=== PATIENT | female | born 1970 | race Caucasian/White ===

== ENCOUNTER 2018-06-01 08:26 | Day surgery (SDC) | payer BC ==
[2018-05-31 14:24] VITALS: BMI 34.1
[2018-06-01] VITALS (19 sets, daily range): BP systolic 104–154; BP diastolic 60–86; PULSE 80–114; RESP 13–19; Ht 154.9 cm; Wt 85.9 kg
[~2018-06-01] VITALS: Ht 154.9 cm; Wt 85.9 kg
[~2018-06-01 08:26] MED LIST: DESFLURANE 15 MIN ONE
[2018-06-01] MEDS ORDERED: CEFAZOLIN 2 GM/50 ML (PMX) 50 ML IVPB ONE (09:00)
[2018-06-01] MEDS ORDERED: SOD CHLORIDE 0.9% 1,000 ML IV SCH (09:00)
[2018-06-01] MEDS ORDERED: LOSA100T15 PO (09:17)
[2018-06-01] MEDS ORDERED: MIDAZOLAM 1 MG/ML 2 ML INJ ONE (09:55)
[2018-06-01] MEDS ORDERED: LIDOCAINE 2% (SDV) 5 ML INJ ONE (09:55)
[2018-06-01] MEDS ORDERED: PROPOFOL 20 ML ONE (09:55)
[2018-06-01] MEDS ORDERED: ROCURONIUM 50 MG INJ ONE (09:55)
[2018-06-01] MEDS ORDERED: DEXAMETHASONE 4 MG/ML 5 ML INJ ONE ×2 (09:56→11:14)
[2018-06-01] MEDS ORDERED: ROPIVACAINE 0.5 % 30 ML VIAL ONE (09:56)
[2018-06-01] MEDS ORDERED: GLYCOPYRROLATE 0.4 MG INJ ONE ×3 (10:06→11:32)
[2018-06-01] MEDS ORDERED: NEOSTIGMINE 3 MG/3 ML SYRINGE ONE ×2 (10:06→11:32)
[2018-06-01] MEDS ORDERED: SUGAMMADEX SODIUM 200 MG/2 ML VIAL IV ONE (10:07)
--- NOTE | 2018-06-01 10:32 | PREAC ---
Date/Time of Note Date/Time of Note DATE: 06/01/18 TIME: 10:31 Anesthesia Eval and Record Evaluation Time Pre-Procedure Interview DATE: 06/01/18 TIME: 10:31 Age 47 Sex female NPO: 8 hrs Preoperative diagnosis incisional hernia Planned procedure laproscopic hernia repair Past Medical History Past Medical History: Includes Cardio: HTN GI: Obesity Surgery & Anesthesia Issues No known issue Meds Anticoagulation: No Beta Adonay within 24 hr: No Reason Beta Adonay not given: Pt. not on B-Adonay Reported Medications Losartan Potassium* (Losartan Potassium*) 100 Mg Tablet, 100 MG PO DAILY, TAB 06/01/18 Current Medications Sodium Chloride 1,000 ml @ 75 mls/hr [id number] IV Last administered on 06/01/18at 09:53; Admin Dose 75 MLS/HR; Start 06/01/18 at 09:00; Stop 06/01/18 at 22:19 Meds reviewed: Yes Allergies Coded Allergies: No Known Drug Allergies (Unverified Allergy, Unknown, 06/01/18) Allergies Reviewed: Yes Labs/Studies Labs Reviewed: Reviewed by anesthesiologist test: Negative Pre-procedure Exam Last vitals Vital Signs Date Temp Pulse Resp B/P (MAP) Pulse Ox O2 O2 Flow FiO2 Time Delivery Rate 06/01/18 97.7 86 16 154/86 97 Room Air 09:46 (108) Airway: Adequate mouth opening, Adequate thyromental dist Mallampati: Mallampati IV Teeth: Normal Lung: Normal Heart: Normal ASA Physical Status ASA physical status: 2 Emergency: None Pre-operative Attestations Prior to commencing anesthesia and surgery, the patient was re-evaluated, there was verification of: *The patient's identity *The results of appropriate recent lab work and preoperative vital signs *The above evaluation not changing prior to induction *Anesthetic plan, risk benefits, alternative and complications discussed with patient/family; questions answered; patient/family understands, accepts and wishes to proceed. SHILO ADAMS DO Jun 01, 2018 10:32
[2018-06-01] MEDS ORDERED: BUPIVACAINE 0.25% (MPF) 30 ML INJ ONE (10:36)
[2018-06-01] MEDS ORDERED: HYDROmorphONE 1 MG/5 ML IV SYRINGE IV PRN ×2 (11:00)
[2018-06-01] MEDS ORDERED: LABETALOL HCL 20MG INJ IV PRN (11:00)
[2018-06-01] MEDS ORDERED: hydrALAzine 20 MG INJ IV PRN (11:00)
[2018-06-01] MEDS ORDERED: MEPERIDINE 25 MG INJ IV PRN (11:00)
[2018-06-01] MEDS ORDERED: ONDANSETRON 4 MG INJ IV PRN (11:00)
[2018-06-01] MEDS ORDERED: CEFAZOLIN 1 GM INJ ONE (11:14)
[2018-06-01] MEDS ORDERED: ONDANSETRON 4 MG INJ ONE (11:14)
--- NOTE | 2018-06-01 11:47 | OPR ---
Date/Time of Note Date/Time of Note DATE: 06/01/18 TIME: 11:44 Operative Report Procedure Date: Jun 01, 2018 Preoperative Diagnosis incarcerated incisional hernia Postoperative Diagnosis same Operation/Procedure Performed 1. laparoscopic incarcerated incisional hernia repair cpt code 55051 2. implantation of abdominal mesh polypropylene 15 x 15 cm cpt code 15662 3. laparoscopic lysis of adhesions Surgeon see signature line Compliance Advisor none Anesthesia Type: general Estimated Blood Loss: 0 - 10 ml's Transfusion none Specimen none Grafts/Implants none Complications none Pt Condition Post Procedure: stable Indications This is a 47-year-old female with symptomatic incarcerated incisional hernia. She has pain and requests surgical repair. Risks alternatives benefits and personnel were discussed the patient. Patient expressed understanding consents to the operation. Procedure Description Patient is taken to the OR and prepped and draped in usual sterile fashion. Surgical time was performed. IV antibiotics were given. Left upper quadrant 5 mm transverse incision was made with a 15 blade. Using a 5 mm optical trocar optical entry is performed. Pneumoperitoneum is established. Left flank 12 mm optical trochars placed under direct visualization. Left lower quadrant 5 mm optical trocar was placed under direct visualization. Upon initial inspection there is incarcerated hernia contents with adhesions. Laparoscopic lysis of adhesions performed to allow visualization and mobilization of the contents away from the site of the hernia. After identification of the fascial edges laparoscopic lysis of adhesions was further performed to allow reduction and mobilization of all contents out of the hernia. The hernia defect was identified. The hernia defect was then closed primarily using Endo Close and laparoscopic techniques with #1 Vicryl suture. After primary closure of the defect underlay mesh with 15 x 15 cm polypropylene mesh was secured with secure strap. Good hemostasis was established. All ports were removed under direct position. Skin was closed with skin wnedy. A tap block was provided at the beginning of the operation by the anesthesiologist. Dry dressings were applied. Roseanne ZAMBRANO Jun 01, 2018 11:47
--- NOTE | 2018-06-01 11:55 | PAC ---
Date/Time of Note Date/Time of Note DATE: 06/01/18 TIME: 11:55 Post-Anesthesia Notes Post-Anesthesia Note Last documented vital signs Vital Signs Date Temp Pulse Resp B/P (MAP) Pulse Ox O2 O2 Flow FiO2 Time Delivery Rate 06/01/18 98.7 87 19 130/65 100 11:52 06/01/18 86 16 154/86 97 Room Air 09:46 (108) Activity: WNL Respiratory function: WNL Cardiovascular function: WNL Mental status: Baseline Pain reasonably controlled: Yes Hydration appropriate: Yes Nausea/Vomiting absent: Yes SHILO ADAMS DO Jun 01, 2018 11:55
[2018-06-01] MEDS ORDERED: HYDROCODONE/APAP (5/325) TAB PO ONE (12:00)
== END 2018-06-01 14:00 | disposition home or self-care (01) ==
LOC: SDS 08:26
PROVIDERS: ATTEND Surgery
DX: K43.0 Incisional hernia with obstruction, without gangrene (principal); I10 Essential (primary) hypertension; E66.9 Obesity, unspecified; Z68.35 Body mass index [BMI] 35.0-35.9, adult
CPT/HCPCS: 49655; J0690; J1100; J2250; J2405; J2710; J2795; J3010; Z7610; 84703

== ENCOUNTER 2018-06-04 12:57 | Emergency (ER) | payer BC ==
[~2018-06-04] VITALS: Ht 162.6 cm; Wt 86.0 kg
[~2018-06-04 12:57] MED LIST changes: -DESFLURANE 15 MIN ONE; +LOSA100T15 PO
[2018-06-04 13:48] VITALS: Ht 162.6 cm; Wt 86.0 kg
[2018-06-04] MEDS ORDERED: SODIUM CHLORIDE 0.9% 1L BAG IV* STA (14:05)
--- NOTE | 2018-06-04 14:21 | ERD ---
ER Documentation Chief Complaint Chief Complaint CONSTIPATION X 5 DAYS, ABD PAIN, S/P HERNIA SURGERY FRI HERE HPI The patient is a 47-year-old male, presenting to the ER because of constipation for the last 5 days after umbilical incarcerated hernia surgery. She went to [facility] yesterday, had a Rhodes catheter inserted due to acute urinary retention. She came back to the ER today because of recurrent pain, complains of constipation, denies fever, chills, neck pain, chest pain, vomiting, complains of diffuse abdominal discomfort, denies dysuria. She does not smoke nor drink Past medical history: Hypertension, dyslipidemia Past surgical history: Ventral herniorrhaphy ROS All systems reviewed and are negative except as per history of present illness. Medications Home Meds Active Scripts Polyethylene Glycol* (Miralax*) 17 Gm Powd.pack, 17 GM PO TID for constipation, #10 Prov:LAKIA HI MD 06/04/18 Na Phos,M-B/Na Phos,Di-Ba (Fleet Enema Extra) 230 Ml Enema, 230 ML RC ONCE, #1 ENEMA Prov:LAKIA HI MD 06/04/18 Bisacodyl* (Dulcolax*) 5 Mg Tablet.dr, 10 MG PO DAILY PRN for CONSTIPATION, #3 TAB Prov:LAKIA HI MD 06/04/18 Tramadol HCl (Tramadol HCl) 50 Mg Tablet, 50 MG PO Q6H PRN for PAIN, #15 TAB Prov:LAKIA HI MD 06/04/18 Reported Medications Losartan Potassium* (Losartan Potassium*) 100 Mg Tablet, 100 MG PO DAILY, TAB 06/01/18 Allergies Allergies: Coded Allergies: No Known Drug Allergies (Unverified Allergy, Unknown, 06/01/18) PMhx/Soc History of Surgery: Yes (tubal ligation) Anesthesia Reaction: No Hx Neurological Disorder: No Hx Respiratory Disorders: No Hx Cardiac Disorders: Yes (htn) Hx Psychiatric Problems: No Hx Miscellaneous Medical Probl: No Hx Alcohol Use: No Hx Substance Use: No Hx Tobacco Use: No Physical Exam Vitals Vital Signs Date Temp Pulse Resp B/P (MAP) Pulse Ox O2 O2 Flow FiO2 Time Delivery Rate 06/04/18 96.3 70 17 135/79 100 Room Air 17:16 (97) 06/04/18 100.1 91 20 144/78 98 Room Air 14:00 (100) 06/04/18 99.6 105 20 134/73 98 13:48 (93) Physical Exam Const: No acute distress. Head: Atraumatic. Eyes: Normal Conjunctiva. ENT: Normal External Ears, Nose and Mouth. Neck: Full range of motion. No meningismus. Resp: Clear to auscultation bilaterally. Cardio: Regular rate and rhythm. Abd: Soft, non distended, normal bowel sounds, vague and diffuse abdominal tenderness, no rigidity, rebound or CVA tenderness, puncture wounds are healing well, no erythema Skin: No petechiae or rashes. Back: No midline or flank tenderness. Ext: No cyanosis, or edema. Neur: Awake and alert. No focal deficit Psych: Normal Mood and Affect. Result Diagram: 06/04/18 1410 06/04/18 1410 Results 24 hrs Laboratory Tests Test 06/04/18 14:10 06/04/18 14:13 06/04/18 14:14 06/04/18 14:23 White Blood Count 9.2 10^3/ul Red Blood Count 4.86 10^6/ul Hemoglobin 13.5 g/dl Hematocrit 40.4 % Mean Corpuscular 83.1 fl Volume Mean Corpuscular 27.8 pg Hemoglobin Mean Corpuscular 33.4 g/dl Hemoglobin Concen t Red Cell 18.6 % Distribution Width Platelet Count 327 10^3/UL Mean Platelet 9.4 fl Volume Immature 0.400 % Granulocytes % Neutrophils % 60.0 % Lymphocytes % 22.4 % Monocytes % 10.1 % Eosinophils % 6.6 % Basophils % 0.5 % Nucleated Red 0.0 /100WBC Blood Cells % Immature 0.040 10^3/ul Granulocytes # Neutrophils # 5.5 10^3/ul Lymphocytes # 2.1 10^3/ul Monocytes # 0.9 10^3/ul Eosinophils # 0.6 10^3/ul Basophils # 0.1 10^3/ul Nucleated Red 0.0 10^3/ul Blood Cells # Prothrombin Time 12.1 Sec Prothrombin Time 0.9 Ratio INR International 0.89 Normalized Ratio Activated 27.2 Sec Partial Thrombopl ast Time Sodium Level 138 mmol/L Potassium Level 4.1 mmol/L Chloride Level 103 mmol/L Carbon Dioxide 23 mmol/L Level Anion Gap 12 Blood Urea 12 mg/dl Nitrogen Creatinine 0.53 mg/dl Est Glomerular > 60 mL/min Filtrat Rate mL/min Glucose Level 84 mg/dl Calcium Level 9.6 mg/dl Total Bilirubin 0.1 mg/dl Direct Bilirubin 0.00 mg/dl Indirect 0.1 mg/dl Bilirubin Aspartate Amino 35 IU/L Transf (AST/SGOT) Alanine 58 IU/L Aminotransferase (ALT/SGPT) Alkaline 85 IU/L Phosphatase Troponin I < 0.012 ng/ml Total Protein 7.5 g/dl Albumin 4.2 g/dl Globulin 3.30 g/dl Albumin/Globulin 1.27 Ratio Lipase 101 U/L Urine Color YELLOW Urine Clarity CLEAR Urine pH 5.0 Urine Specific 1.021 [place] Urine Ketones NEGATIVE mg/dL Urine Nitrite NEGATIVE mg/dL Urine Bilirubin NEGATIVE mg/dL Urine NEGATIVE mg/dL Urobilinogen Urine Leukocyte NEGATIVE Cecil/ul Esterase Urine Hemoglobin NEGATIVE mg/dL Urine Glucose NEGATIVE mg/dL Urine Total NEGATIVE mg/dl Protein POC Venous 1.1 mmol/L Lactate POC Beta HCG, NEGATIVE Qualitative Current Medications Medications Dose Sig/Luis Alberto Start Time Status Last (Trade) Ordered Route PRN Stop Time Admin Dose Reason Admin Sodium 2,580 ml BOLUS OVER 2 06/04/18 Cancel Chloride HOURS STAT 14:05 (NS) IV* 06/04/18 14:06 Morphine 4 mg ONCE STAT 06/04/18 DC 06/04/18 Sulfate IV 14:34 15:03 (morphine) 06/04/18 14:39 Ondansetron 4 mg ONCE STAT 06/04/18 DC 06/04/18 HCl (Zofran IV 14:34 15:02 Inj) 06/04/18 14:39 Sodium 133 ml ONCE ONCE 06/04/18 DC 06/04/18 Biphosphate/ MS 15:00 15:05 Sodium 06/04/18 15:01 Phosphate (Fleet Enema) Procedures/[place] [id number] Radiology Main Line: [phone] DIAGNOSTIC IMAGING REPORT Patient: JACQUIE KILPATRICK : 1970 Age: 47 Sex: F MR #: [id number] DOS: 06/04/18 1405 Ordering MD: MEL PEÑALOZA MD Location: E/R Room/Bed: PROCEDURE: CT Abdomen and Pelvis without contrast. CLINICAL INDICATION: Abdominal pain. TECHNIQUE: CT scan of the abdomen and pelvis without contrast was performed on a multidetector high-resolution CT scanner. The patient was scanned without intravenous contrast. Coronal and sagittal reformatted images were obtained from the axial source images. Images were reviewed on a high-resolution PACS workstation. One or more of the following dose reduction techniques were used: Automated exposure control, adjustment of the mA and/or kV according to patient size, use of iterative reconstruction technique. DICOM images are available. The total exam CTDI equals 21.07 mGy and the total exam DLP equals 1157.68 mGy- cm. COMPARISON: None. FINDINGS: CT abdomen: The lung bases are clear. The heart size is normal, without pericardial thickening or effusion. The liver is normal in size and density without focal mass or intrahepatic biliary dilatation. The spleen is normal in size and homogeneous in density. The stomach is grossly unremarkable. The pancreas as visualized is normal. The gallbladder and biliary tree are unremarkable and there is no evidence for biliary dilatation. The adrenal glands are symmetric and normal. The kidneys are symmetrically unremarkable as well. No renal calculus or obstructive uropathy or mass lesion is seen. The aorta is of normal caliber. There is mild aortic atherosclerosis. There is no retroperitoneal lymphadenopathy. The césar hepatis region is clear. The small bowel and mesentery, as visualized, are unremarkable. There is a large amount of retained fecal material throughout the colon. There is a small 3.7 x 4.1 x 2.8 cm midline anterior ventral hernia containing fat and fluid, located proximally 3 cm inferior to the umbilicus. The fascial defect measures 9 mm. There is a left upper quadrant incision without evidence of complication. Small mass encases edema is seen at the left lateral aspect of the umbilicus. CT pelvis: The small bowel loops situated within the pelvis are unremarkable. The pelvic organs are normal. The pelvic sidewalls and inguinal regions are clear. The sigmoid colon and rectum are unremarkable. The appendix is normal. No mass, lymphadenopathy, or free fluid is seen. No acute inflammation is seen. Rhodes catheters present. The surrounding osseous structures are unremarkable. No osteolytic or osteoblastic lesion is detected. IMPRESSION: 1. Small 3.7 x 4.1 x 2.8 cm midline anterior ventral hernia containing fat and fluid, located proximally 3 cm inferior to the umbilicus. 2. Large amount of retained fecal material throughout the colon suggesting constipation. 3. Postsurgical changes as above. RPTAT: JJ .Renato Hernandez MD, MD Date Time Electronically viewed and signed by .Renato Hernandez MD, MD on 06/04/2018 15:19 .A/ CC: MEL PEÑALOZA MD [id number] [place] [address] Radiology Main Line: [phone] DIAGNOSTIC IMAGING REPORT Patient: JACQUIE KILPATRICK : 1970 Age: 47 Sex: F MR #: [id number] DOS: 06/04/18 1405 Ordering MD: MEL PEÑALOZA MD Location: E/R Room/Bed: PROCEDURE: XR Chest. CLINICAL INDICATION: chest pain, sepsis TECHNIQUE: Single frontal view of the chest was obtained COMPARISON: None FINDINGS: The heart and mediastinum are within normal limits. The lungs are clear. There is no pleural effusion or pneumothorax. RPTAT: AA IMPRESSION: No acute disease. .Bryan Ordaz MD, MD Date Time Electronically viewed and signed by .Bryan Ordaz MD, MD on 06/04/2018 15:01 .S/ CC: MEL PEÑALOZA MD [id number] EKG: Read by emergency physician Rate/Rhythm: Normal Sinus Rhythm 77 beats/min QRS, ST, T-waves: No ST elevation, no T inversion Impression: Normal EKG MEDICAL MAKING DECISION: The patient is a 47-year-old female, presenting with acute postoperative pain, constipation, urinary retention. She was treated with morphine for medical IV for pain, Zofran 4 mg IV for nausea, Fleet enema with good response. She is stable for outpatient follow-up The differential diagnoses considered include but are not limited to cholelithiasis, cholecystitis, choledocholithiasis, cholangitis, pancreatitis, hepatitis, gastritis, peptic ulcer disease, gastric ulcer, appendicitis, cystitis, diverticulitis, partial small bowel obstruction. Departure Diagnosis: Primary Impression: Constipation Additional Impressions: Post-op pain Urinary retention Condition: Good Comments She was discharged with Ultram, advised to stop [place], Dulcolax Fleet enema, MiraLAX I discussed the findings with the patient. I advised the patient to follow-up with a general surgeon and the on-call urologist Dr. Shah 1-2 days, sooner if needed and return if any concern. Disclaimer: Inadvertent spelling and grammatical errors are likely due to EHR/dictation software use and do not reflect on the overall quality of patient care. Also, please note that the electronic time recorded on this note does not necessarily reflect the actual time of the patient encounter. LAKIA HI MD Jun 04, 2018 14:21
[2018-06-04] MEDS ORDERED: morphine 4 MG/ML VIAL IV STA (14:34)
[2018-06-04] MEDS ORDERED: ONDANSETRON 4 MG INJ IV STA (14:34)
[2018-06-04] MEDS ORDERED: NA PHOSPHATE/BIPHOS 133 ML ENEMA PR ONE (15:00)
[2018-06-04] MEDS ORDERED: TRAM50TA2 PO (16:15)
[2018-06-04] MEDS ORDERED: BISA-57 PO (16:16)
[2018-06-04] MEDS ORDERED: NA P230E RC (16:16)
[2018-06-04] MEDS ORDERED: POLY17PO6 PO (16:17)
[2018-06-04 17:16] VITALS: BP 135/79; PULSE 70; RESP 17
== END 2018-06-04 17:24 | disposition home or self-care (01) ==
LOC: E/R 12:57
DX: K59.00 Constipation, unspecified (principal); R33.9 Retention of urine, unspecified; G89.18 Other acute postprocedural pain; I10 Essential (primary) hypertension; R10.9 Unspecified abdominal pain
CPT/HCPCS: 36415; 71045; 74176; 80053; 81003; 81025; 83690; 84484; 85025; 85610; 85730; 86305; 87040; 87086; 93005; 96374; 96375; 99285; J2270; J2405; Z7610; 83605; J7030

== ENCOUNTER 2018-06-07 18:23 | Inpatient (IN) | payer BC ==
[~2018-06-07] VITALS: Ht 154.9 cm; Wt 81.8 kg
[~2018-06-07 18:23] MED LIST changes: +BISA-57 PO; +NA P230E RC; +POLY17PO6 PO; +TRAM50TA2 PO
--- NOTE | 2018-06-07 19:24 | ERD ---
ER Documentation Chief Complaint Chief Complaint C/O GENERALIZED AP, VOMITING AND NO BM X6 DAYS S/P SURGERY HPI 47-year-old woman brought in by family members for continued diffuse abdominal cramping and constipation times 1 week. She is status post surgery for incarcerated umbilical hernia and states she has had pain and constipation since the surgery. She has been using her medications as prescribed including tramadol, oral opioid analgesics, polyethylene glycol, and stool softener. She was seen and evaluated here for the same thing just 3 days ago and a workup was negative and she was given medications for outpatient management. She states she has been using her medications as prescribed but has had very little bowel movements and has continued abdominal cramping. She denies fevers or chills, no chest pain or shortness of breath, no blood per rectum or melena, no headache or blurry vision, no dysuria. ROS All systems reviewed and are negative except as per history of present illness. Medications Home Meds Active Scripts Polyethylene Glycol* (Miralax*) 17 Gm Powd.pack, 17 GM PO TID for constipation, #10 Prov:LAKIA HI MD 06/04/18 Na Phos,M-B/Na Phos,Di-Ba (Fleet Enema Extra) 230 Ml Enema, 230 ML RC ONCE, #1 ENEMA Prov:LAKIA HI MD 06/04/18 Bisacodyl* (Dulcolax*) 5 Mg Tablet.dr, 10 MG PO DAILY PRN for CONSTIPATION, #3 TAB Prov:LAKIA HI MD 06/04/18 Tramadol HCl (Tramadol HCl) 50 Mg Tablet, 50 MG PO Q6H PRN for PAIN, #15 TAB Prov:LAKIA HI MD 06/04/18 Reported Medications Hydrocodone/Acetaminophen (Nichols 10-325 Tablet) 1 Each Tablet, 1 EACH PO Q4 PRN for SEVERE PAIN LEVEL 7-10, TAB 06/07/18 Losartan Potassium* (Losartan Potassium*) 100 Mg Tablet, 100 MG PO DAILY, TAB 06/01/18 Allergies Allergies: Coded Allergies: No Known Drug Allergies (Unverified Allergy, Unknown, 06/07/18) PMhx/Soc Obesity, hernia surgery Anesthesia Reaction: No Hx Neurological Disorder: No Hx Respiratory Disorders: No Hx Cardiac Disorders: Yes (htn) Hx Psychiatric Problems: No Hx Miscellaneous Medical Probl: No Hx Alcohol Use: No Hx Substance Use: No Hx Tobacco Use: No Smoking Status: Never smoker FmHx Family History: No diabetes Physical Exam Vitals Vital Signs Date Temp Pulse Resp B/P (MAP) Pulse Ox O2 O2 Flow FiO2 Time Delivery Rate 06/07/18 97 16 135/85 98 Room Air 19:23 (102) 06/07/18 98.5 133 22 198/93 99 18:41 (128) Physical Exam GENERAL: Well-developed, well-nourished, moderate discomfort, afebrile HEENT: Moist mucous membranes, pink conjunctiva, no cervical spine tenderness or step-off deformities, no goiter, no jaundice or icterus, extraocular movements intact without pain. No submandibular induration, and no pharyngeal erythema NEURO: Alert and oriented 3, cranial nerves II through XII intact bilaterally, pupils equal round reactive to light, no focal deficits or facial asymmetry, sensation intact distally Strength 5/5 in upper and lower extremities bilaterally CARDIAC: Regular rate and rhythm, no murmurs rubs or gallops LUNGS: Clear bilaterally no wheezing crackles or stridor ABDOMEN: Soft, protuberant abdomen, no masses palpated, diffusely tender to superficial touch, no guarding or rigidity, no rebound. SKIN: Warm and dry to touch, no abrasions, contusions, or hematomas, no lacerations, no ecchymosis, no target lesions, and without ulcers EXTREMITIES: No clubbing cyanosis or edema, calves are bilaterally symmetrical, no Homans sign, no popliteal cord sign. Distal pulses equal and bilateral PSYCH: Normal affect without agitation or irritability Result Diagram: 06/07/18193706/07/181937 Results 24 hrs Laboratory Tests Test 06/07/18 19:38 White Blood Count 12.1 10^3/ul Red Blood Count 5.41 10^6/ul Hemoglobin 15.0 g/dl Hematocrit 44.6 % Mean Corpuscular Volume 82.4 fl Mean Corpuscular Hemoglobin 27.7 pg Mean Corpuscular Hemoglobin Concent 33.6 g/dl Red Cell Distribution Width 17.8 % Platelet Count 489 10^3/UL Mean Platelet Volume 9.7 fl Immature Granulocytes % 0.500 % Neutrophils % 82.0 % Lymphocytes % 12.3 % Monocytes % 4.1 % Eosinophils % 0.9 % Basophils % 0.2 % Nucleated Red Blood Cells % 0.0 /100WBC Immature Granulocytes # 0.060 10^3/ul Neutrophils # 9.9 10^3/ul Lymphocytes # 1.5 10^3/ul Monocytes # 0.5 10^3/ul Eosinophils # 0.1 10^3/ul Basophils # 0.0 10^3/ul Nucleated Red Blood Cells # 0.0 10^3/ul Prothrombin Time 11.8 Sec Prothrombin Time Ratio 0.9 INR International Normalized Ratio 0.86 Activated Partial Thromboplast Time 27.5 Sec Sodium Level 140 mmol/L Potassium Level 4.0 mmol/L Chloride Level 101 mmol/L Carbon Dioxide Level 23 mmol/L Anion Gap 16 Blood Urea Nitrogen 14 mg/dl Creatinine 0.76 mg/dl Est Glomerular Filtrat Rate mL/min > 60 mL/min Glucose Level 129 mg/dl Calcium Level 10.1 mg/dl Total Bilirubin 0.2 mg/dl Direct Bilirubin 0.00 mg/dl Indirect Bilirubin 0.2 mg/dl Aspartate Amino Transf (AST/SGOT) 26 IU/L Alanine Aminotransferase (ALT/SGPT) 27 IU/L Alkaline Phosphatase 105 IU/L Total Protein 8.4 g/dl Albumin 4.5 g/dl Globulin 3.90 g/dl Albumin/Globulin Ratio 1.15 Lipase 64 U/L Current Medications Medications Dose Sig/Luis Alberto Start Time Status Last (Trade) Ordered Route PRN Stop Time Admin Dose Reason Admin Sodium 1,000 ml @ Q1H STAT 06/07/18 DC 06/07/18 Chloride 1,000 mls/hr IV 19:34 19:46 06/07/18 20:33 Ketorolac 15 mg ONCE STAT 06/07/18 DC 06/07/18 Tromethamine IV 19:34 19:46 (Toradol) 06/07/18 19:35 Procedures/MDM CT scan of the abdomen pelvis performed 3 days ago, IMPRESSION: 1. Small 3.7 x 4.1 x 2.8 cm midline anterior ventral hernia containing fat and fluid, located proximally 3 cm inferior to the umbilicus. 2. Large amount of retained fecal material throughout the colon suggesting constipation. 3. Postsurgical changes as above. IV line was established patient was placed on dumper operator rhythm strip revealed a sinus rhythm at about 90 bpm with upright P and T waves. Patient was afebrile I administered 1 L normal saline IV, bisacodyl, and Toradol 15 mg IV x1. CBC and electrolytes were normal, liver function tests were normal I spoke to her surgeon Dr. Vincent who recommended repeat imaging and agreed to consult the patient. CT scan of the abdomen and pelvis was performed, IMPRESSION: No evidence of urolithiasis, obstructive uropathy, diverticulitis or appendicitis. Infraumbilical hernia containing fat and a small volume of fluid. Patient will be admitted for continued medical management and surgical consultation. Departure Diagnosis: Primary Impression: Constipation Constipation type: slow transit constipation Qualified Codes: K59.01 - Slow transit constipation Additional Impressions: Post-op pain Intractable pain Condition: MALU Gomez MD Jun 07, 2018 19:24
[2018-06-07] MEDS ORDERED: SOD CHLORIDE 0.9% 1,000 ML IV STA (19:34)
[2018-06-07] MEDS ORDERED: KETOROLAC 15 MG INJ IV STA (19:34)
[2018-06-07] MEDS ORDERED: HYDR-3980 PO (20:31)
[2018-06-07] MEDS ORDERED: DICYCLOMINE 10 MG CAP PO ONE (21:00)
[2018-06-07 22:00] VITALS: BP 139/67; PULSE 90; RESP 18
[2018-06-07] MEDS ORDERED: BISACODYL 10 MG SUPP PR ONE (23:00)
[2018-06-07] MEDS ORDERED: NACL 0.9% 3 ML SYG IV SCH (23:00)
[2018-06-07] MEDS: morphine 2 MG INJ IV PRN (23:11)
[2018-06-07] MEDS: DEXTROSE 5%-0.45% NACL 1,000 ML IV SCH (23:11)
[2018-06-07] MEDS: ONDANSETRON 4 MG INJ IV PRN (23:11)
--- NOTE | 2018-06-07 23:19 | HP ---
Date/Time of Note Date/Time of Note DATE: 06/07/18 TIME: 23:19 Assessment/Plan VTE Prophylaxis Pharmacological prophylaxis: heparin Lines/Catheters IV Catheter Type (from Nrsg): Saline Lock Assessment/Plan Assessment/Plan 47-year-old female with a history of hypertension and incarcerated incisional hernia repair last week here with postop abdominal pain and constipation 1. Postop abdominal pain and constipation -Symptoms probably from post-op ileus. CT abdomen/pelvis without acute findings -Keep n.p.o. for now with IV fluid -Pain management -Awaiting surgical eval by Dr. Vincent 2. Hypertension: BP within goal 3. Recent incarcerated incisional hernia repair (06/01/18) -See #1 Result Diagram: 06/07/18193706/07/181937 Results 24hrs Laboratory Tests Test 06/07/18 19:38 White Blood Count 12.1 #H Red Blood Count 5.41 H Hemoglobin 15.0 Hematocrit 44.6 Mean Corpuscular Volume 82.4 Mean Corpuscular Hemoglobin 27.7 L Mean Corpuscular Hemoglobin Concent 33.6 Red Cell Distribution Width 17.8 H Platelet Count 489 #H Mean Platelet Volume 9.7 Immature Granulocytes % 0.500 H Neutrophils % 82.0 H Lymphocytes % 12.3 L Monocytes % 4.1 Eosinophils % 0.9 Basophils % 0.2 Nucleated Red Blood Cells % 0.0 Immature Granulocytes # 0.060 H Neutrophils # 9.9 H Lymphocytes # 1.5 Monocytes # 0.5 Eosinophils # 0.1 Basophils # 0.0 Nucleated Red Blood Cells # 0.0 Prothrombin Time 11.8 L Prothrombin Time Ratio 0.9 INR International Normalized Ratio 0.86 Activated Partial Thromboplast Time 27.5 Sodium Level 140 Potassium Level 4.0 Chloride Level 101 Carbon Dioxide Level 23 Anion Gap 16 H Blood Urea Nitrogen 14 Creatinine 0.76 Est Glomerular Filtrat Rate mL/min > 60 Glucose Level 129 Calcium Level 10.1 Total Bilirubin 0.2 Direct Bilirubin 0.00 Indirect Bilirubin 0.2 Aspartate Amino Transf (AST/SGOT) 26 Alanine Aminotransferase (ALT/SGPT) 27 Alkaline Phosphatase 105 Total Protein 8.4 H Albumin 4.5 Globulin 3.90 H Albumin/Globulin Ratio 1.15 Lipase 64 HPI/ROS Admit Date/Time Admit Date/Time Jun 07, 2018 at 20:18 Hx of Present Illness This is a 47-year-old female with a history of hypertension and recent laparoscopic incarcerated incisional hernia repair last week. She presented to ER complaining of abdominal pain and constipation. She said she only had very small bowel movement about 3 days ago otherwise she has been constipated. She also reported abdominal distention as well as nausea and nonbloody vomiting.she said she has been eating yogurt and soup for the most part. CT abdomen pelvis in the ER shows no evidence of urolithiasis, obstructive uropathy, diverticulitis or appendicitis. Infraumbilical hernia containing fat and a small volume of fluid. PMH/Family/Social Past Medical History Past Surgical History Past Surgical Hx: other (see hpi) Family History Significant Family History: no pertinent family hx Social History Alcohol Use: other Smoking Status: Unknown if ever smoked Drug Use: other Medications Current Medications Dextrose/Sodium Chloride 1,000 ml @ 120 mls/hr Q8H20M IV Last administered on 06/07/18at 23:11; Admin Dose 120 MLS/HR; Start 06/07/18 at 22:54 IV Flush (NS 3 ml) 3 ml PER PROTOCOL IV ; Start 06/07/18 at 23:00 Ondansetron HCl (Zofran Inj) 4 mg Q6H PRN IV NAUSEA/VOMITING Last administered on 06/07/18at 23:11; Admin Dose 4 MG; Start 06/07/18 at 23:00 Morphine Sulfate (morphine) 2 mg Q4H PRN IV .SEVERE PAIN 7-10 Last administered on 06/07/18at 23:11; Admin Dose 2 MG; Start 06/07/18 at 23:00 Famotidine (Pepcid Iv) 20 mg Q12 IV ; Start 06/08/18 at 09:00 Coded Allergies: No Known Drug Allergies (Unverified Allergy, Unknown, 06/07/18) Social History Smoking Status: Never smoker Exam/Review of Systems Vital Signs Vitals Vital Signs Date Temp Pulse Resp B/P (MAP) Pulse Ox O2 O2 Flow FiO2 Time Delivery Rate 06/07/18 90 20 137/76 98 Room Air 21:24 (96) 06/07/18 98.5 18:41 Exam Constitutional: other (Slight distress noted. She is alert and oriented and answering questions appropriately) Head: normocephalic, atraumatic Eyes: EOMI, PERRL Respiratory: clear to auscultation, normal air movement Cardiovascular: regular rate and rhythm, nl pulses Gastrointestinal: soft, tender Extremities: normal pulses FRANSICO PEREIRA MD Jun 07, 2018 23:19
[2018-06-07 23:36] VITALS: Ht 154.9 cm; Wt 81.8 kg
[2018-06-08 02:20] VITALS: BP 117/56; PULSE 90; RESP 18
[2018-06-08] MEDS: DEXTROSE 5%-0.45% NACL 1,000 ML IV SCH ×3 (06:44→20:52)
[2018-06-08 07:55] VITALS: BP 113/60; PULSE 76; RESP 18
[2018-06-08] MEDS: FAMOTIDINE 20 MG INJ IV SCH ×2 (08:25→20:52)
[2018-06-08] MEDS: morphine 2 MG INJ IV PRN ×3 (08:26→19:41)
[2018-06-08] MEDS ORDERED: MINERAL OIL 133 ML ENEMA PR ONE (11:00)
--- NOTE | 2018-06-08 12:09 | DS ---
Date/Time of Note Date/Time of Note DATE: 06/08/18 TIME: 12:08 Discharge Summary Admission/Discharge Info Admit Date/Time Jun 07, 2018 at 20:18 Discharge Date/Time Patient Condition: Good Consults Dr Vincent Procedures CT abdomen and pelvis without contrast. CLINICAL INDICATION: Pain TECHNIQUE: CT scan of the abdomen and pelvis without contrast was performed and is reconstructed at 2.5 mm contiguous axial intervals from the dome of the diaphragm to the inferior pubic rami.. The patient was scanned without intravenous contrast. Sagittal and coronal reformatted images were obtained from the axial source images. The calculated radiation dose measures 1129 mGy centimeters. The CTDI measures 19 mGy. Individualized dose optimization technique was used for the performance of this exam. This included 1. Automated exposure control. 2. Adjustment of the mA and / or kV according to the patient's size. 3. Use of iterative reconstructed technique. COMPARISON: CT abdomen pelvis June 04 FINDINGS: The lung bases are clear of any infiltrate or nodule. No effusion is seen. The liver is of normal size, contour and attenuation with no mass or ductal dilatation. No gallstones are visualized. No splenic, adrenal or pancreatic abnormalities present. Kidneys are of normal size and contour. No hydronephrosis, calculus or masses seen. Ureters are of normal course and caliber with no stone. No bladder mass or stone is present. Rhodes catheter is present in the lumen of the urinary bladder. There is no aneurysm. Calcified plaque is present in the wall of the aorta. No adenopathy is present. No bowel mass or obstruction is present. The appendix is not visualized.. No phlegmon, ascites or pneumoperitoneum is visualized. There is a midline infra umbilical hernia containing fat and a small volume of fluid. The osseous structures are intact. IMPRESSION: No evidence of urolithiasis, obstructive uropathy, diverticulitis or appendicitis. Infraumbilical hernia containing fat and a small volume of fluid. .Uday Nieves MD, MD Hx of Present Illness 47-year-old female admitted with abdominal pain. No bowel movement for a few days. Recent incisional hernia repair Hospital Course Hospitalist coverage/hospital course Evaluate for abdominal pain. Seen by her surgeon. Wound intact. CAT scan without any acute process. She seems to have obstipation. Counseling options therapy discussed extensively with patient and son. They agree to the care plan and options. Patient to follow-up with her surgeon in 1 week. Home health if available for continuing wound eval. Obstipation Postoperative incisional hernia repair Hypertension Metabolic syndrome Stress incontinence due to obstipation Home Meds Active Scripts Polyethylene Glycol* (Miralax*) 17 Gm Powd.pack, 17 GM PO TID for constipation, #10 Prov:LAKIA HI MD 06/04/18 Na Phos,M-B/Na Phos,Di-Ba (Fleet Enema Extra) 230 Ml Enema, 230 ML RC ONCE, #1 ENEMA Prov:LAKIA HI MD 06/04/18 Bisacodyl* (Dulcolax*) 5 Mg Tablet.dr, 10 MG PO DAILY PRN for CONSTIPATION, #3 TAB Prov:LAKIA HI MD 06/04/18 Tramadol HCl (Tramadol HCl) 50 Mg Tablet, 50 MG PO Q6H PRN for PAIN, #15 TAB Prov:LAKIA HI MD 06/04/18 Reported Medications Hydrocodone/Acetaminophen ([place] 10-325 Tablet) 1 Each Tablet, 1 EACH PO Q4 PRN for SEVERE PAIN LEVEL 7-10, TAB 06/07/18 Losartan Potassium* (Losartan Potassium*) 100 Mg Tablet, 100 MG PO DAILY, TAB 06/01/18 Primary Care Provider [facility] Time spent on discharge: > 30 minutes Pending Labs Laboratory Tests Test 06/07/18 19:38 06/08/18 05:17 White Blood Count 12.1 10^3/ul (4.8-10.8) 6.0 10^3/ul (4.8-10.8) Red Blood Count 5.41 10^6/ul (4.20-5.40) 4.24 10^6/ul (4.20-5.40) Hemoglobin 15.0 g/dl (12.0-16.0) 11.9 g/dl (12.0-16.0) Hematocrit 44.6 % (37.0-47.0) 35.6 % (37.0-47.0) Mean Corpuscular Volume 82.4 fl (82.0-101.0) 84.0 fl (82.0-101.0) Mean Corpuscular 27.7 pg (29.0-33.0) 28.1 pg (29.0-33.0) Hemoglobin Mean Corpuscular 33.6 g/dl (32.0-37.0) 33.4 g/dl (32.0-37.0) Hemoglobin Concent Red Cell Distribution 17.8 % (11.5-14.5) 18.3 % (11.5-14.5) Width Platelet Count 489 10^3/UL (140-415) 346 10^3/UL (140-415) Mean Platelet Volume 9.7 fl (7.4-10.4) 9.6 fl (7.4-10.4) Immature Granulocytes % 0.500 % (0.001-0.429) 0.300 % (0.001-0.429) Neutrophils % 82.0 % (39.0-77.0) 65.9 % (39.0-77.0) Lymphocytes % 12.3 % (15.0-51.0) 17.9 % (15.0-51.0) Monocytes % 4.1 % (0.0-11.0) 10.5 % (0.0-11.0) Eosinophils % 0.9 % (0.0-7.0) 5.2 % (0.0-7.0) Basophils % 0.2 % (0.0-2.0) 0.2 % (0.0-2.0) Nucleated Red Blood Cells 0.0 /100WBC (0.0-0.0) 0.0 /100WBC (0.0-0.0) % Immature Granulocytes # 0.060 10^3/ul (0.0-0.031) 0.020 10^3/ul (0.0-0.031) Neutrophils # 9.9 10^3/ul (1.6-7.5) 3.9 10^3/ul (1.6-7.5) Lymphocytes # 1.5 10^3/ul (0.8-2.9) 1.1 10^3/ul (0.8-2.9) Monocytes # 0.5 10^3/ul (0.3-0.9) 0.6 10^3/ul (0.3-0.9) Eosinophils # 0.1 10^3/ul (0.0-0.5) 0.3 10^3/ul (0.0-0.5) Basophils # 0.0 10^3/ul (0.0-0.1) 0.0 10^3/ul (0.0-0.1) Nucleated Red Blood Cells 0.0 10^3/ul (0.0-0.0) 0.0 10^3/ul (0.0-0.0) # Prothrombin Time 11.8 Sec (11.9-14.9) Prothrombin Time Ratio 0.9 INR International 0.86 Normalized Ratio Activated 27.5 Sec (23.0-35.0) Partial Thromboplast Time Sodium Level 140 mmol/L (135-144) 138 mmol/L (135-144) Potassium Level 4.0 mmol/L (3.5-5.1) 3.5 mmol/L (3.5-5.1) Chloride Level 101 mmol/L (97-110) 103 mmol/L (97-110) Carbon Dioxide Level 23 mmol/L (21-31) 26 mmol/L (21-31) Anion Gap 16 (5-13) 9 (5-13) Blood Urea Nitrogen 14 mg/dl (7-20) 15 mg/dl (7-20) Creatinine 0.76 mg/dl (0.44-1.00) 0.66 mg/dl (0.44-1.00) Est Glomerular Filtrat > 60 mL/min (>60) > 60 mL/min (>60) Rate mL/min Glucose Level 129 mg/dl (70-220) 114 mg/dl (70-220) Calcium Level 10.1 mg/dl (8.4-10.2) 8.3 mg/dl (8.4-10.2) Total Bilirubin 0.2 mg/dl (0.2-1.3) 0.2 mg/dl (0.2-1.3) Direct Bilirubin 0.00 mg/dl (0.00-0.20) 0.00 mg/dl (0.00-0.20) Indirect Bilirubin 0.2 mg/dl (0-1.1) 0.2 mg/dl (0-1.1) Aspartate Amino 26 IU/L (15-46) 22 IU/L (15-46) Transf (AST/SGOT) Alanine 27 IU/L (13-69) 30 IU/L (13-69) Aminotransferase (ALT/SGPT ) Alkaline Phosphatase 105 IU/L (42-121) 68 IU/L (42-121) Total Protein 8.4 g/dl (6.1-8.1) 6.3 g/dl (6.1-8.1) Albumin 4.5 g/dl (3.3-4.9) 3.3 g/dl (3.3-4.9) Globulin 3.90 g/dl (1.3-3.2) 3.00 g/dl (1.3-3.2) Albumin/Globulin Ratio 1.15 1.10 Lipase 64 U/L (23-300) Phosphorus Level 3.4 mg/dl (2.5-4.9) Magnesium Level 2.1 mg/dl (1.7-2.5) AYAH MILLIGAN MD Jun 08, 2018 12:09
--- NOTE | 2018-06-08 12:10 | PDOCDIS ---
Discharge Instructions CONDITION [id number] Patient Condition: [id number] Stable HOME CARE INSTRUCTIONS: [id number] Diet Instructions: [id number] TIVITY: [id number] Activity Restrictions: [id number] Avoid heavy lifting FOLLOW UP/APPOINTMENTS Follow-up Plan Dr Vincent 1wk PCP 1wk AYAH MILLIGAN MD Jun 08, 2018 12:10
[2018-06-08] MEDS ORDERED: SENOKOTS PO (12:11)
--- NOTE | 2018-06-08 13:12 | CONS ---
DATE OF ADMISSION: 06/07/2018 DATE OF CONSULTATION: 06/08/2018 INDICATION: This is a 47-year-old female who recently had a laparoscopic incarcerated incisional her eric repair. Postoperatively, she is having some pain and was on oral narcotics. Subsequently, she d eveloped constipation and has not had a full bowel movement in almost a week. She presented to the E with some distention. CT scan shows small infraumbilical hernia with fat and small fluid volume. Additionally, she has an extensive amount of stool in her colon. General surgery was consulted for a ssistance in management. LABORATORY DATA: White blood cell count 6.0, hemoglobin 11.9, platelets 346. Chemistries are all wi thin normal limits except for calcium of 8.3. PHYSICAL EXAMINATION: VITAL SIGNS: Temperature is 98.4, pulse is 76, respiratory rate is 18, blood pressure 113/60. ABDOMEN: Focal abdominal findings, is distended. No peritoneal signs or rebound tenderness. Well h ealed incisions from the port sites. DIAGNOSTIC DATA: CT scan as mentioned above. ASSESSMENT AND PLAN: This is a 47-year-old female status post laparoscopic incarcerated incisional h ernia with subsequent constipation. We will do some bowel regimen of enema to help her have a bowel movement. We will continue to follow as needed. Dictated By: LORENE ZAMBRANO MD SB/NTS Conf#: [id number] DID#: [id number] CC: FRANSICO PEREIRA MD; AYAH MILLIGAN MD;*EndCC*
[2018-06-08 14:11] VITALS: BP 131/72; PULSE 83; RESP 18
[2018-06-08] MEDS ORDERED: POLYETHYLENE GLYCOL 17 GM PACKET PO ONE (15:00)
[2018-06-08] MEDS ORDERED: SENNA/DOCUSATE NA (8.6MG/50MG) TAB PO ONE (15:00)
[2018-06-08] MEDS ORDERED: LORAZEPAM 2 MG INJ IV ONE (19:30)
[2018-06-08] MEDS: ONDANSETRON 4 MG INJ IV PRN (19:42)
[2018-06-08 20:00] VITALS: BP 167/85; PULSE 88; RESP 20
[2018-06-08] MEDS: POLYETHYLENE GLYCOL 17 GM PACKET PO SCH (21:00)
[2018-06-08] MEDS: SENNA/DOCUSATE NA (8.6MG/50MG) TAB PO SCH (21:00)
[2018-06-08] MEDS ORDERED: morphine 4 MG/ML VIAL IV ONE (21:29)
[2018-06-08] MEDS ORDERED: morphine 4 MG/ML VIAL IV PRN (21:30)
[2018-06-09 02:00] VITALS: BP 138/73; PULSE 104; RESP 16
[2018-06-09] MEDS: KETOROLAC 30 MG INJ IV PRN ×2 (05:11→13:37)
[2018-06-09] MEDS: ONDANSETRON 4 MG INJ IV PRN (05:11)
[2018-06-09] MEDS: DEXTROSE 5%-0.45% NACL 1,000 ML IV SCH ×3 (05:12→14:29)
[2018-06-09 08:04] VITALS: BP 128/62; PULSE 90; RESP 17
[2018-06-09] MEDS: FAMOTIDINE 20 MG INJ IV SCH ×2 (08:42→21:17)
[2018-06-09] MEDS: POLYETHYLENE GLYCOL 17 GM PACKET PO SCH ×3 (08:42→09:01)
--- NOTE | 2018-06-09 13:12 | PN ---
Date/Time of Note Date/Time of Note DATE: 06/09/18 TIME: 13:11 Assessment/Plan VTE Prophylaxis Risk score (from Nsg)>0 risk: 3 SCD applied (from Nsg): Yes Pharmacological prophylaxis: other Lines/Catheters IV Catheter Type (from Nrsg): Peripheral IV Urinary Cath still in place: Yes Reason Cath still needed: urinary retention, other (indicate) Assessment/Plan Assessment/Plan s/p lap incarcerated ventral hernia repair with mesh with some distention and constipation on NGT will await bowel function Result Diagram: 06/09/18 0609 06/09/18 0609 Results 24hrs Laboratory Tests Test 06/09/18 06:09 White Blood Count 5.5 Red Blood Count 4.51 Hemoglobin 12.6 Hematocrit 37.4 Mean Corpuscular Volume 82.9 Mean Corpuscular Hemoglobin 27.9 L Mean Corpuscular Hemoglobin Concent 33.7 Red Cell Distribution Width 17.6 H Platelet Count 386 Mean Platelet Volume 9.3 Immature Granulocytes % 0.400 Neutrophils % 70.2 Lymphocytes % 13.8 L Monocytes % 13.1 H Eosinophils % 2.0 Basophils % 0.5 Nucleated Red Blood Cells % 0.0 Immature Granulocytes # 0.020 Neutrophils # 3.9 Lymphocytes # 0.8 Monocytes # 0.7 Eosinophils # 0.1 Basophils # 0.0 Nucleated Red Blood Cells # 0.0 Sodium Level 137 Potassium Level 3.6 Chloride Level 100 Carbon Dioxide Level 26 Anion Gap 11 Blood Urea Nitrogen 10 Creatinine 0.62 Est Glomerular Filtrat Rate mL/min > 60 Glucose Level 121 Calcium Level 8.6 Phosphorus Level 3.6 Magnesium Level 2.0 Total Bilirubin 0.2 Direct Bilirubin 0.00 Indirect Bilirubin 0.2 Aspartate Amino Transf (AST/SGOT) 20 Alanine Aminotransferase (ALT/SGPT) 20 Alkaline Phosphatase 72 Total Protein 6.8 Albumin 3.7 Globulin 3.10 Albumin/Globulin Ratio 1.19 Serum HCG, Qualitative NEGATIVE Subjective 24 Hr Interval Summary Free Text/Dictation stomach less distended after NGT placement. patient feeling a little better. Exam/Review of Systems Exam Vitals Vital Signs Date Temp Pulse Resp B/P (MAP) Pulse Ox O2 O2 Flow FiO2 Time Delivery Rate 06/09/18 99.0 90 17 128/62 97 08:04 (84) 06/08/18 Room Air 14:11 Intake and Output 306/08/18 06/09/18 1515:00 23:00 07:00 IntakeIntake Total 480 ml 800 ml 1000 ml OutputOutput Total 1950 ml 300 ml BalanceBalance 480 ml -1150 ml 700 ml Exam moderately distended but with normally a protuberant abdomen no peritoneal signs Results Results 24hrs Laboratory Tests Test 06/09/18 06:09 White Blood Count 5.5 Red Blood Count 4.51 Hemoglobin 12.6 Hematocrit 37.4 Mean Corpuscular Volume 82.9 Mean Corpuscular Hemoglobin 27.9 L Mean Corpuscular Hemoglobin Concent 33.7 Red Cell Distribution Width 17.6 H Platelet Count 386 Mean Platelet Volume 9.3 Immature Granulocytes % 0.400 Neutrophils % 70.2 Lymphocytes % 13.8 L Monocytes % 13.1 H Eosinophils % 2.0 Basophils % 0.5 Nucleated Red Blood Cells % 0.0 Immature Granulocytes # 0.020 Neutrophils # 3.9 Lymphocytes # 0.8 Monocytes # 0.7 Eosinophils # 0.1 Basophils # 0.0 Nucleated Red Blood Cells # 0.0 Sodium Level 137 Potassium Level 3.6 Chloride Level 100 Carbon Dioxide Level 26 Anion Gap 11 Blood Urea Nitrogen 10 Creatinine 0.62 Est Glomerular Filtrat Rate mL/min > 60 Glucose Level 121 Calcium Level 8.6 Phosphorus Level 3.6 Magnesium Level 2.0 Total Bilirubin 0.2 Direct Bilirubin 0.00 Indirect Bilirubin 0.2 Aspartate Amino Transf (AST/SGOT) 20 Alanine Aminotransferase (ALT/SGPT) 20 Alkaline Phosphatase 72 Total Protein 6.8 Albumin 3.7 Globulin 3.10 Albumin/Globulin Ratio 1.19 Serum HCG, Qualitative NEGATIVE Medications Medication Current Medications Dextrose/Sodium Chloride 1,000 ml @ 120 mls/hr Q8H20M IV Last administered on 06/09/18at 05:12; Admin Dose 120 MLS/HR; Start 06/07/18 at 22:54 IV Flush (NS 3 ml) 3 ml PER PROTOCOL IV Last administered on 06/07/18at 23:32; Admin Dose 3 ML; Start 06/07/18 at 23:00 Ondansetron HCl (Zofran Inj) 4 mg Q6H PRN IV NAUSEA/VOMITING Last administered on 06/09/18at 05:11; Admin Dose 4 MG; Start 06/07/18 at 23:00 Famotidine (Pepcid Iv) 20 mg Q12 IV Last administered on 06/09/18at 08:42; Admin Dose 20 MG; Start 06/08/18 at 09:00 Polyethylene Glycol (Miralax) 17 gm BID PO Last administered on 06/09/18at 08:50; Admin Dose 17 GM; Start 06/08/18 at 21:00 Senna/Docusate Sodium (Senokot-S) 2 tab HS PO ; Start 06/08/18 at 21:00 Morphine Sulfate (morphine) 3 mg Q4H PRN IV SEVERE PAIN LEVEL 7-10; Start 06/08/18 at 21:30 Ketorolac Tromethamine (Toradol) 30 mg Q6H PRN IV PAIN Last administered on 06/09/18at 05:11; Admin Dose 30 MG; Start 06/08/18 at 23:00; Stop 06/09/18 at 23:00 Roseanne ZAMBRANO Jun 09, 2018 13:12
[2018-06-09] MEDS: PHENOL 1.4% SOLN 180 ML BTL MT PRN (14:44)
[2018-06-09 15:53] VITALS: BP 122/58; PULSE 84; RESP 16
[2018-06-09 16:14] VITALS: BP 122/58; PULSE 84; RESP 16
--- NOTE | 2018-06-09 16:52 | PN ---
Date/Time of Note Date/Time of Note DATE: 06/09/18 TIME: 16:50 Assessment/Plan VTE Prophylaxis Risk score (from Nsg)>0 risk: 3 SCD applied (from Nsg): Yes SCD contraindicated: low risk/ambulating Pharmacological prophylaxis: LMWH Lines/Catheters IV Catheter Type (from Nrsg): Peripheral IV Urinary Cath still in place: Yes Reason Cath still needed: urinary retention Assessment/Plan Hospital Course Hospitalist coverage/hospital course Evaluate for abdominal pain. Seen by her surgeon. Wound intact. CAT scan without any acute process. She seems to have obstipation. Counseling options therapy discussed extensively with patient and son. They agree to the care plan and options. Patient to follow-up with her surgeon in 1 week. Home health if available for continuing wound eval. Assessment and plan 1. Ileus/Obstipation mod stable, increased bowel care regimen. Presently n.p.o. with NG care. Repeat enema? 2. Postoperative incisional hernia repair 2. Hypertension 4.. Metabolic syndrome 5. Stress incontinence due to obstipation Subjective: Feels better improved post NG insertion. Minimal flatus. No dyspnea. NG with greenish dark and pinkish output Objective: Vital signs stable Physical exam No pallor icterus Regular no m/r/g Clear Bs+/dimin, mild diffuse tenderness, mostly below umbilicus. Overweight, no r/r/g. Surgical site CDI No edema Result Diagram: 06/09/18 0609 06/09/18 0609 Results 24hrs Laboratory Tests Test 06/09/18 06:09 White Blood Count 5.5 Red Blood Count 4.51 Hemoglobin 12.6 Hematocrit 37.4 Mean Corpuscular Volume 82.9 Mean Corpuscular Hemoglobin 27.9 L Mean Corpuscular Hemoglobin Concent 33.7 Red Cell Distribution Width 17.6 H Platelet Count 386 Mean Platelet Volume 9.3 Immature Granulocytes % 0.400 Neutrophils % 70.2 Lymphocytes % 13.8 L Monocytes % 13.1 H Eosinophils % 2.0 Basophils % 0.5 Nucleated Red Blood Cells % 0.0 Immature Granulocytes # 0.020 Neutrophils # 3.9 Lymphocytes # 0.8 Monocytes # 0.7 Eosinophils # 0.1 Basophils # 0.0 Nucleated Red Blood Cells # 0.0 Sodium Level 137 Potassium Level 3.6 Chloride Level 100 Carbon Dioxide Level 26 Anion Gap 11 Blood Urea Nitrogen 10 Creatinine 0.62 Est Glomerular Filtrat Rate mL/min > 60 Glucose Level 121 Calcium Level 8.6 Phosphorus Level 3.6 Magnesium Level 2.0 Total Bilirubin 0.2 Direct Bilirubin 0.00 Indirect Bilirubin 0.2 Aspartate Amino Transf (AST/SGOT) 20 Alanine Aminotransferase (ALT/SGPT) 20 Alkaline Phosphatase 72 Total Protein 6.8 Albumin 3.7 Globulin 3.10 Albumin/Globulin Ratio 1.19 Serum HCG, Qualitative NEGATIVE Exam/Review of Systems Exam Vitals Vital Signs Date Temp Pulse Resp B/P (MAP) Pulse Ox O2 O2 Flow FiO2 Time Delivery Rate 06/09/18 98.6 84 16 122/58 96 16:14 (79) 06/08/18 Room Air 14:11 Intake and Output 06/08/18 06/08/18 06/09/18 1414:59 22:59 06:59 IntakeIntake Total 480 ml 800 ml 1000 ml OutputOutput Total 1950 ml 300 ml BalanceBalance 480 ml -1150 ml 700 ml Results Results 24hrs Laboratory Tests Test 06/09/18 06:09 White Blood Count 5.5 Red Blood Count 4.51 Hemoglobin 12.6 Hematocrit 37.4 Mean Corpuscular Volume 82.9 Mean Corpuscular Hemoglobin 27.9 L Mean Corpuscular Hemoglobin Concent 33.7 Red Cell Distribution Width 17.6 H Platelet Count 386 Mean Platelet Volume 9.3 Immature Granulocytes % 0.400 Neutrophils % 70.2 Lymphocytes % 13.8 L Monocytes % 13.1 H Eosinophils % 2.0 Basophils % 0.5 Nucleated Red Blood Cells % 0.0 Immature Granulocytes # 0.020 Neutrophils # 3.9 Lymphocytes # 0.8 Monocytes # 0.7 Eosinophils # 0.1 Basophils # 0.0 Nucleated Red Blood Cells # 0.0 Sodium Level 137 Potassium Level 3.6 Chloride Level 100 Carbon Dioxide Level 26 Anion Gap 11 Blood Urea Nitrogen 10 Creatinine 0.62 Est Glomerular Filtrat Rate mL/min > 60 Glucose Level 121 Calcium Level 8.6 Phosphorus Level 3.6 Magnesium Level 2.0 Total Bilirubin 0.2 Direct Bilirubin 0.00 Indirect Bilirubin 0.2 Aspartate Amino Transf (AST/SGOT) 20 Alanine Aminotransferase (ALT/SGPT) 20 Alkaline Phosphatase 72 Total Protein 6.8 Albumin 3.7 Globulin 3.10 Albumin/Globulin Ratio 1.19 Serum HCG, Qualitative NEGATIVE Medications Medication Current Medications Dextrose/Sodium Chloride 1,000 ml @ 120 mls/hr Q8H20M IV Last administered on 06/09/18 13:40; Admin Dose 120 MLS/HR; Start 06/07/18 at 22:54 IV Flush (NS 3 ml) 3 ml PER PROTOCOL IV Last administered on 06/07/18 23:32; Admin Dose 3 ML; Start 06/07/18 at 23:00 Ondansetron HCl (Zofran Inj) 4 mg Q6H PRN IV NAUSEA/VOMITING Last administered on 06/09/18 05:11; Admin Dose 4 MG; Start 06/07/18 at 23:00 Famotidine (Pepcid Iv) 20 mg Q12 IV Last administered on 06/09/18 08:42; Admin Dose 20 MG; Start 06/08/18 at 09:00 Polyethylene Glycol (Miralax) 17 gm BID PO Last administered on 06/09/18 08:50; Admin Dose 17 GM; Start 06/08/18 at 21:00 Senna/Docusate Sodium (Senokot-S) 2 tab HS PO ; Start 06/08/18 at 21:00 Morphine Sulfate (morphine) 3 mg Q4H PRN IV SEVERE PAIN LEVEL 7-10; Start 06/08/18 at 21:30 Ketorolac Tromethamine (Toradol) 30 mg Q6H PRN IV PAIN Last administered on 13:37; Admin Dose 30 MG; Start 06/08/18 at 23:00; Stop 06/09/18 at 23:00 Phenol (Chloraseptic Throat [place]) 2 spray Q2H PRN MT SORE THROAT Last administered on 06/09/18 14:44; Admin Dose 2 SPRAY; Start 06/09/18 at 14:00 AYAH MILLIGAN MD Jun 09, 2018 16:52
[2018-06-09] MEDS: METOCLOPRAMIDE 10 MG INJ IV SCH ×2 (17:53→23:57)
[2018-06-09 20:30] VITALS: BP 142/71; PULSE 90; RESP 17
[2018-06-09] MEDS: SENNA/DOCUSATE NA (8.6MG/50MG) TAB PO SCH (20:55)
[2018-06-09] MEDS: KETOROLAC 30 MG INJ IV SCH (21:25)
[2018-06-10 02:29] VITALS: BP 146/76; PULSE 89; RESP 20
[2018-06-10] MEDS: DULOXETINE 30 MG CAP DR PO SCH ×2 (02:42→09:00)
[2018-06-10] MEDS: DEXTROSE 5%-0.45% NACL 1,000 ML IV SCH ×2 (03:21→17:34)
[2018-06-10] MEDS: METOCLOPRAMIDE 10 MG INJ IV SCH ×3 (05:48→21:31)
[2018-06-10] MEDS: KETOROLAC 30 MG INJ IV SCH ×3 (05:48→23:38)
[2018-06-10 07:30] VITALS: BP 126/60; PULSE 75; RESP 18
[2018-06-10] MEDS: POLYETHYLENE GLYCOL 17 GM PACKET PO SCH (09:00)
[2018-06-10] MEDS: FAMOTIDINE 20 MG INJ IV SCH ×2 (09:41→21:29)
[2018-06-10] MEDS: ENOXAPARIN 40 MG/0.4 ML SYG SC SCH (09:42)
[2018-06-10] MEDS: PHENOL 1.4% SOLN 180 ML BTL MT PRN ×3 (10:52→23:37)
--- NOTE | 2018-06-10 11:53 | PN ---
Date/Time of Note Date/Time of Note DATE: 06/10/18 TIME: 11:51 Assessment/Plan VTE Prophylaxis Risk score (from Nsg)>0 risk: 3 SCD applied (from Nsg): Yes SCD contraindicated: low risk/ambulating Pharmacological prophylaxis: LMWH Lines/Catheters IV Catheter Type (from Nrsg): Peripheral IV Urinary Cath still in place: Yes Reason Cath still needed: urinary retention Assessment/Plan Hospital Course Hospitalist coverage/hospital course Evaluate for abdominal pain. Seen by her surgeon. Wound intact. CAT scan without any acute process. She seems to have obstipation. Counseling options therapy discussed extensively with patient and son. They agree to the care plan and options. Patient to follow-up with her surgeon in 1 week. Home health if available for continuing wound eval. Assessment and plan 1. Ileus/Obstipation stable, increased bowel care regimen on discharge. Presently npo/ NG. Repeat enema? 2. Postoperative incisional hernia repair able follow-up with surgeon 2. Hypertension 4.. Metabolic syndrome 5. Stress incontinence due to obstipation, continue Rhodes care until status improved 6. Depression? Appreciate behavioral health assistance. Will start Cymbalta when tolerating p.o.'s. Subjective: 3/2 feels better improved post NG insertion. Minimal flatus. No dyspnea. NG w ith greenish dark and pinkish output /3: Feels a bit better. Positive large BM. Less nausea. Still having vague diffuse abdominal discomfort. Wants to consider another enema. Objective: Vital signs stable Physical exam No pallor icterus Regular no m/r/g Clear Bs+/dimin, mild diffuse tenderness. Overweight, no r/r/g. Surgical site CDI No edema Result Diagram: 06/10/18 0557 06/10/18 0557 Results 24hrs Laboratory Tests Test 06/10/18 05:57 White Blood Count 5.8 Red Blood Count 4.44 Hemoglobin 12.2 Hematocrit 36.8 L Mean Corpuscular Volume 82.9 Mean Corpuscular Hemoglobin 27.5 L Mean Corpuscular Hemoglobin Concent 33.2 Red Cell Distribution Width 17.5 H Platelet Count 381 Mean Platelet Volume 9.3 Immature Granulocytes % 0.300 Neutrophils % 58.3 Lymphocytes % 24.0 Monocytes % 12.9 H Eosinophils % 4.0 Basophils % 0.5 Nucleated Red Blood Cells % 0.0 Immature Granulocytes # 0.020 Neutrophils # 3.4 Lymphocytes # 1.4 Monocytes # 0.8 Eosinophils # 0.2 Basophils # 0.0 Nucleated Red Blood Cells # 0.0 Prothrombin Time 13.1 Prothrombin Time Ratio 1.0 INR International Normalized Ratio 0.98 Sodium Level 141 Potassium Level 3.2 L Chloride Level 107 Carbon Dioxide Level 24 Anion Gap 10 Blood Urea Nitrogen 8 Creatinine 0.67 Est Glomerular Filtrat Rate mL/min > 60 Glucose Level 99 Lactic Acid Level 0.7 Calcium Level 8.7 Phosphorus Level 3.7 Magnesium Level 2.4 Total Bilirubin 0.0 L Direct Bilirubin 0.00 Indirect Bilirubin 0.0 Aspartate Amino Transf (AST/SGOT) 27 Alanine Aminotransferase (ALT/SGPT) 16 Alkaline Phosphatase 69 Total Protein 6.5 Albumin 3.5 Globulin 3.00 Albumin/Globulin Ratio 1.16 Exam/Review of Systems Exam Vitals Vital Signs Date Temp Pulse Resp B/P (MAP) Pulse Ox O2 O2 Flow FiO2 Time Delivery Rate 06/10/18 98.6 75 18 126/60 98 07:30 (82) 06/08/18 Room Air 14:11 Intake and Output 06/09/18 06/09/18 06/10/18 1515:00 23:00 07:00 IntakeIntake Total 1000 ml 420 ml 835 ml OutputOutput Total 750 ml 450 ml 850 ml BalanceBalance 250 ml -30 ml -15 ml Results Results 24hrs Laboratory Tests Test 06/10/18 05:57 White Blood Count 5.8 Red Blood Count 4.44 Hemoglobin 12.2 Hematocrit 36.8 L Mean Corpuscular Volume 82.9 Mean Corpuscular Hemoglobin 27.5 L Mean Corpuscular Hemoglobin Concent 33.2 Red Cell Distribution Width 17.5 H Platelet Count 381 Mean Platelet Volume 9.3 Immature Granulocytes % 0.300 Neutrophils % 58.3 Lymphocytes % 24.0 Monocytes % 12.9 H Eosinophils % 4.0 Basophils % 0.5 Nucleated Red Blood Cells % 0.0 Immature Granulocytes # 0.020 Neutrophils # 3.4 Lymphocytes # 1.4 Monocytes # 0.8 Eosinophils # 0.2 Basophils # 0.0 Nucleated Red Blood Cells # 0.0 Prothrombin Time 13.1 Prothrombin Time Ratio 1.0 INR International Normalized Ratio 0.98 Sodium Level 141 Potassium Level 3.2 L Chloride Level 107 Carbon Dioxide Level 24 Anion Gap 10 Blood Urea Nitrogen 8 Creatinine 0.67 Est Glomerular Filtrat Rate mL/min > 60 Glucose Level 99 Lactic Acid Level 0.7 Calcium Level 8.7 Phosphorus Level 3.7 Magnesium Level 2.4 Total Bilirubin 0.0 L Direct Bilirubin 0.00 Indirect Bilirubin 0.0 Aspartate Amino Transf (AST/SGOT) 27 Alanine Aminotransferase (ALT/SGPT) 16 Alkaline Phosphatase 69 Total Protein 6.5 Albumin 3.5 Globulin 3.00 Albumin/Globulin Ratio 1.16 Medications Medication Current Medications Dextrose/Sodium Chloride 1,000 ml @ 80 mls/hr [id number] IV Last administered on 06/10/18 03:21; Admin Dose 80 MLS/HR; Start 06/07/18 at 22:54 IV Flush (NS 3 ml) 3 ml PER PROTOCOL IV Last administered on 06/07/18 23:32; Admin Dose 3 ML; Start 06/07/18 at 23:00 Ondansetron HCl (Zofran Inj) 4 mg Q6H PRN IV NAUSEA/VOMITING Last administered on 06/09/18 05:11; Admin Dose 4 MG; Start 06/07/18 at 23:00 Famotidine (Pepcid Iv) 20 mg Q12 IV Last administered on 06/10/18 09:41; Admin Dose 20 MG; Start 06/08/18 at 09:00 Polyethylene Glycol (Miralax) 17 gm BID PO Last administered on 06/09/18 08:50; Admin Dose 17 GM; Start 06/08/18 at 21:00 Senna/Docusate Sodium (Senokot-S) 2 tab HS PO ; Start 06/08/18 at 21:00 Morphine Sulfate (morphine) 3 mg Q4H PRN IV SEVERE PAIN LEVEL 7-10; Start 06/08/18 at 21:30 Phenol (Chloraseptic Throat [place]) 2 spray Q2H PRN MT SORE THROAT Last administered on 06/10/18 10:52; Admin Dose 2 SPRAY; Start 06/09/18 at 14:00 Ketorolac Tromethamine (Toradol) 30 mg Q8 IV Last administered on 06/10/18 05:48; Admin Dose 30 MG; Start 06/09/18 at 22:00; Stop 06/11/18 at 23:00 Metoclopramide HCl (Reglan) 5 mg Q6 IV Last administered on 06/10/18at 05:48; Admin Dose 5 MG; Start 06/09/18 at 18:00; Stop 06/10/18 at 23:00 Enoxaparin Sodium (Lovenox) 40 mg DAILY SC Last administered on 06/10/18at 09:42; Admin Dose 40 MG; Start 06/10/18 at 09:00 Duloxetine HCl (Cymbalta) 60 mg DAILY PO Last administered on 06/10/18at 02:42; Admin Dose 60 MG; Start 06/10/18 at 02:30 AYAH MILLIGAN MD Jun 10, 2018 11:53
[2018-06-10] MEDS ORDERED: NA PHOSPHATE/BIPHOS 133 ML ENEMA PR ONE (12:30)
[2018-06-10] MEDS: POTASSIUM CHLORIDE 100 ML IVPB SCH ×2 (13:03→15:28)
--- NOTE | 2018-06-10 13:26 | PN ---
DATE: 06/10/2018 ASSESSMENT: The patient is status post ventral hernia repair, laparoscopy with placement of the mesh . PLAN: The patient was admitted due to constipation and severe abdominal pain. CT scan has showed th at the patient has been here for a few days. Actually, was admitted on 06/07/2018 and now is third d ay in the hospital. Yesterday, the patient received some Fleet enema which has helped her to have so me relatively large bowel movement, but still the patient is complaining of abdominal pain, especiall y when she sneezes, she gets severe pain or when she coughs. Denies having passed any gas. OBJECTIVE: GENERAL: Awake, alert, oriented, has been out of bed today and has taken a shower. VITAL SIGNS: Temperature 98.6, heart rate 75, respiration 18, blood pressure 126/60, saturation 98% room air. I and O's, the left NG tube apparently has drained 1350 mL in past 24 hours according to t he recordings. Urine output has been 700 mL. LABORATORY DATA: WBC today 5800, on admission it was 12,000, the differential is 58% segmented. On admission was 82%. Hemoglobin is 12.2, hematocrit 36.8. Chemistry today, potassium is low at 3.2, o therwise the rest of the lab values is normal. The patient appears in pain and uncomfortable. The N G tube appears to be a little bit too far down, so it was pulled back about 20 cm and readjusted and is functioning very nicely. The drainage is only gastric juice is not advised at this time. HEART: Regular. LUNGS: Clear. ABDOMEN: Protruded with fat maybe with some gas. Bowel sound is present. I would say 3+/4+. There is no rigidity. There is no guarding, but some degree of rebound tenderness. Rhodes catheter is in progress. EXTREMITIES: Legs no calf tenderness. No pitting edema. ASSESSMENT AND PLAN: The patient may have still some elements of ileus. The patient thinks that if she has another enema, it is going to help her, so we will give her another Fleets enema. Also, I ch anged the medication, the Reglan is going to be 10 mg q.8h IV, it was 5 mg q.6h., Toradol will polanco e it to 30 mg IV q.6h. p.r.n. or around the clock. We will get a KUB to assess the status of the roddy wels. We will keep the NG tube on intermittent suction. Will order some blood tests for tomorrow. I will see the patient tomorrow. Patient can have ice chips. Otherwise, no fluid. I saw this patien t at the request of Dr. Vincent. Dictated By: JORGE HURLEY MD PS/NTS Conf#: [id number] DID#: [id number] CC: AYAH MILLIGAN MD; FRANSICO PEREIRA MD;*EndCC*
[2018-06-10 15:25] VITALS: BP 141/65; PULSE 94; RESP 18
[2018-06-10 20:05] VITALS: BP 158/80; PULSE 81; RESP 19
[2018-06-11 02:00] VITALS: BP 157/80; PULSE 98; RESP 19
[2018-06-11] MEDS ORDERED: LORAZEPAM 2 MG INJ IV ONE (02:00)
[2018-06-11] MEDS: METOCLOPRAMIDE 10 MG INJ IV SCH ×3 (05:49→21:29)
[2018-06-11] MEDS: KETOROLAC 30 MG INJ IV SCH ×3 (05:49→18:15)
[2018-06-11] MEDS: DEXTROSE 5%-0.45% NACL 1,000 ML IV SCH ×2 (05:49→08:25)
[2018-06-11 07:33] VITALS: BP 133/71; PULSE 84; RESP 18
[2018-06-11] MEDS: FAMOTIDINE 20 MG INJ IV SCH ×2 (08:26→21:29)
[2018-06-11] MEDS: ENOXAPARIN 40 MG/0.4 ML SYG SC SCH (08:27)
[2018-06-11] MEDS ORDERED: DIATR MEGLU/DIATRIZOATE SODIUM 120 ML BTL ONE (12:49)
[2018-06-11] MEDS ORDERED: POTASSIUM CHLORIDE 100 ML IVPB ONE (13:00)
[2018-06-11 15:35] VITALS: BP 162/82; PULSE 94; RESP 20
--- NOTE | 2018-06-11 15:44 | PN ---
DATE: 06/11/2018 SUBJECTIVE: States that feels a little bit better today. She has had a couple of bowel movements, l iquid in nature since yesterday. No nausea, no vomiting. NG tube still is in place, draining slight ly greenish fluid. PHYSICAL EXAMINATION: HEART: Regular. LUNGS: Clear. ABDOMEN: Does not appear distended. It is not tympanic. It is soft. There is no rigidity. There is no guarding. Still, there is some tenderness. When she coughs, she feels tenderness almost all a round the abdomen. Bowel sounds are 3+/4+. VITAL SIGNS: Temperature maximum today 98.2, heart rate 84, respiration 18, blood pressure 133/71, s aturation 92% room air. LABORATORY DATA: WBC 8300 with 68% neutrophils, hemoglobin 11.9, hematocrit 35.3. Chemistry: Potas sium today is 3, yesterday was 3.2, which is low and has to be replaced. Sodium is 140, normal. BUN and creatinine are normal. Total bilirubin is 0.1 which is actually low. DIAGNOSTIC DATA: We got the KUB yesterday afternoon and the report is as follows: Impression: Mode rately dilated small bowel loops in the left mid abdomen. These might be worse when compared to the prior noncontrast CT scans. Further evaluation with contrast-enhanced CT scan of the abdomen and pel vis is advised. ASSESSMENT AND PLAN: This is a 47-year-old female who was admitted through the emergency room 4 days ago because of abdominal pain in the form of cramping and constipation for 1 week. About 2 weeks ag o, she had ventral hernia repair laparoscopically with implantation of mesh. The CT scan here showed severe constipation. The patient actually has been vomiting some on and off; therefore, they have p ut in NG tube, but she had problem having bowel movement or passing gas for several days. She respon ded to Fleet enemas and yesterday afternoon, the x-ray as was mentioned showed that there is very mod erate to severely dilated small bowel loops in the center of the abdomen. They did not mention obstr uction, but it could be partially obstructed in my opinion. They recommended to repeat CT scan of th e abdomen and pelvis with oral contrast, but we are going to get a small bowel follow through to work as a therapeutic possibly and also to show us the contour of the bowel. I have ordered that one and this is going to be done today afternoon. Meanwhile, we will continue to having the NG tube in plac e and give the patient IV fluids. Per nurses' report, the medical doctor hospitalist has ordered pot assium replacement IV per protocol, but apparently, the patient has refused to accept the potassium s olution. In any case, we will wait for the result of the small bowel follow-through with Gastrografi n and further decision will be made after that. We will continue to follow. Dictated By: JORGE HURLEY MD PS/NTS Conf#: [id number] DID#: [id number] CC: AYAH MILLIGAN MD; FRANSICO PEREIRA MD;*End*
--- NOTE | 2018-06-11 17:44 | PN ---
Date/Time of Note Date/Time of Note DATE: 06/11/18 TIME: 17:42 Assessment/Plan VTE Prophylaxis Risk score (from Nsg)>0 risk: 2 SCD applied (from Nsg): Yes Pharmacological prophylaxis: LMWH Lines/Catheters IV Catheter Type (from Nrsg): Peripheral IV Urinary Cath still in place: Yes Reason Cath still needed: other (indicate) Assessment/Plan Hospital Course SUBJECTIVE: Had a bowel movement today. Continues to have abdominal pain and gas. OBJECTIVE: Physical Exam General: Adequately build 47 year-old female lying in bed in no apparent distress. HEENT: Normocephalic, atraumatic. Eyes: Anicteric sclerae, conjunctivae clear. ENT: Nasal septum midline, oral mucosa moist. Neck supple, no JVD noticed. Respiratory: Bilaterally clear breath sounds. No use of accessory muscles of respiration. No adventitious breath sounds. Cardiovascular: S1, S2 heard. No murmurs or gallops. Abdomen: Distended. Genitourinary: Deferred. Extremities: No cyanosis, no clubbing, no edema. Peripheral pulses palpable. Neurologic: Cranial nerves II through XII grossly intact. The patient is awake, alert, and oriented. Skin: Normal skin turgor. No skin rashes. Labs & Vitals per chart ASSESSMENT & PLAN 47-year-old female with past medical history of hypertension, obesity, and recent incarcerated incisional hernia repair on 06/01/2018. The patient came to the emergency room with abdominal pain, vomiting, and no bowel movements for 6 days status post surgery. CT scan of the abdomen and pelvis showed infraumbil ical hernia containing fat and a small volume of fluid. The patient was admitted to inpatient setting for further treatment and evaluation. 1. Postoperative ileus. -NGT decompression as per surgery. -Pending small bowel follow-through. 2. Hypertension. -Continue PRN antihypertensives until the patient is able to take oral medications. 3. Hypokalemia. -Patient refused IV supplements. 4. Fluids, electrolytes, and nutrition. -N.p.o. except ice chips. -Continue IV fluids. 5. DVT prophylaxis. -Subcutaneous Lovenox. 6. Plan. -Continue surgical recommendations. The patient was in collaboration with Dr. Sanders. Result Diagram: 06/11/18 0558 06/11/18 0558 Results 24hrs Laboratory Tests Test 06/11/18 05:58 White Blood Count 8.3 # Red Blood Count 4.29 Hemoglobin 11.9 L Hematocrit 35.3 L Mean Corpuscular Volume 82.3 Mean Corpuscular Hemoglobin 27.7 L Mean Corpuscular Hemoglobin Concent 33.7 Red Cell Distribution Width 17.3 H Platelet Count 404 Mean Platelet Volume 9.5 Immature Granulocytes % 0.400 Neutrophils % 68.4 Lymphocytes % 16.3 Monocytes % 11.6 H Eosinophils % 2.9 Basophils % 0.4 Nucleated Red Blood Cells % 0.0 Immature Granulocytes # 0.030 Neutrophils # 5.7 Lymphocytes # 1.4 Monocytes # 1.0 H Eosinophils # 0.2 Basophils # 0.0 Nucleated Red Blood Cells # 0.0 Sodium Level 140 Potassium Level 3.0 L Chloride Level 102 Carbon Dioxide Level 25 Anion Gap 13 Blood Urea Nitrogen 9 Creatinine 0.73 Est Glomerular Filtrat Rate mL/min > 60 Glucose Level 102 Calcium Level 8.7 Phosphorus Level 4.4 Magnesium Level 2.2 Total Bilirubin 0.1 L Direct Bilirubin 0.00 Indirect Bilirubin 0.1 Aspartate Amino Transf (AST/SGOT) 23 Alanine Aminotransferase (ALT/SGPT) 24 Alkaline Phosphatase 72 Total Protein 6.7 Albumin 3.5 Globulin 3.20 Albumin/Globulin Ratio 1.09 Exam/Review of Systems Exam Vitals Vital Signs Date Temp Pulse Resp B/P (MAP) Pulse Ox O2 O2 Flow FiO2 Time Delivery Rate 06/11/18 98.6 94 20 162/82 94 15:35 (108) 06/11/18 Room Air 07:33 Intake and Output 06/10/18 06/10/18 06/11/18 1515:00 23:00 07:00 IntakeIntake Total 1000 ml 800 ml OutputOutput Total 1400 ml 1500 ml 1850 ml BalanceBalance -1400 ml -500 ml -1050 ml Results Results 24hrs Laboratory Tests Test 06/11/18 05:58 White Blood Count 8.3 # Red Blood Count 4.29 Hemoglobin 11.9 L Hematocrit 35.3 L Mean Corpuscular Volume 82.3 Mean Corpuscular Hemoglobin 27.7 L Mean Corpuscular Hemoglobin Concent 33.7 Red Cell Distribution Width 17.3 H Platelet Count 404 Mean Platelet Volume 9.5 Immature Granulocytes % 0.400 Neutrophils % 68.4 Lymphocytes % 16.3 Monocytes % 11.6 H Eosinophils % 2.9 Basophils % 0.4 Nucleated Red Blood Cells % 0.0 Immature Granulocytes # 0.030 Neutrophils # 5.7 Lymphocytes # 1.4 Monocytes # 1.0 H Eosinophils # 0.2 Basophils # 0.0 Nucleated Red Blood Cells # 0.0 Sodium Level 140 Potassium Level 3.0 L Chloride Level 102 Carbon Dioxide Level 25 Anion Gap 13 Blood Urea Nitrogen 9 Creatinine 0.73 Est Glomerular Filtrat Rate mL/min > 60 Glucose Level 102 Calcium Level 8.7 Phosphorus Level 4.4 Magnesium Level 2.2 Total Bilirubin 0.1 L Direct Bilirubin 0.00 Indirect Bilirubin 0.1 Aspartate Amino Transf (AST/SGOT) 23 Alanine Aminotransferase (ALT/SGPT) 24 Alkaline Phosphatase 72 Total Protein 6.7 Albumin 3.5 Globulin 3.20 Albumin/Globulin Ratio 1.09 Medications Medication Current Medications Dextrose/Sodium Chloride 1,000 ml @ 80 mls/hr [id number] IV Last administered on 06/11/18 08:25; Admin Dose 80 MLS/HR; Start 06/07/18 at 22:54 IV Flush (NS 3 ml) 3 ml PER PROTOCOL IV Last administered on 06/07/18 23:32; Admin Dose 3 ML; Start 06/07/18 at 23:00 Ondansetron HCl (Zofran Inj) 4 mg Q6H PRN IV NAUSEA/VOMITING Last administered on 06/09/18 05:11; Admin Dose 4 MG; Start 06/07/18 at 23:00 Famotidine (Pepcid Iv) 20 mg Q12 IV Last administered on 06/11/18 08:26; Admin Dose 20 MG; Start 06/08/18 at 09:00 Morphine Sulfate (morphine) 3 mg Q4H PRN IV SEVERE PAIN LEVEL 7-10; Start 06/08/18 at 21:30 Phenol (Chloraseptic Throat [place]) 2 spray Q2H PRN MT SORE THROAT Last administered on 06/10/18 23:37; Admin Dose 2 SPRAY; Start 06/09/18 at 14:00 Enoxaparin Sodium (Lovenox) 40 mg DAILY SC Last administered on 06/11/18 08:27; Admin Dose 40 MG; Start 06/10/18 at 09:00 Duloxetine HCl (Cymbalta) 60 mg DAILY PO ; Start 06/12/18 at 12:00 Polyethylene Glycol (Miralax) 17 gm BID PO ; Start 06/15/18 at 21:00 Senna/Docusate Sodium (Senokot-S) 2 tab HS PO ; Start 06/15/18 at 21:00 Ketorolac Tromethamine (Toradol) 30 mg Q6 IV Last administered on 06/11/18at 12:09; Admin Dose 30 MG; Start 06/10/18 at 18:00; Stop 06/13/18 at 17:59 Metoclopramide HCl (Reglan) 10 mg Q8 IV Last administered on 06/11/18at 05:49; Admin Dose 10 MG; Start 06/10/18 at 14:00 JAIRO HURT NP Jun 11, 2018 17:44
[2018-06-11] MEDS ORDERED: ACETAMINOPHEN 1000MG/100ML IV 100 ML IVPB ONE (18:30)
[2018-06-11 20:22] VITALS: BP 142/73; PULSE 102; RESP 18
[2018-06-11] MEDS ORDERED: traZODone 50 MG TAB PO ONE (23:30)
[2018-06-12] VITALS (9 sets, daily range): BP systolic 123–157; BP diastolic 58–83; PULSE 77–100; RESP 16–18
[2018-06-12] MEDS: DEXTROSE 5%-0.45% NACL 1,000 ML IV SCH (01:23)
[2018-06-12] MEDS: KETOROLAC 30 MG INJ IV SCH ×4 (01:23→17:54)
[2018-06-12] MEDS: METOCLOPRAMIDE 10 MG INJ IV SCH ×3 (06:05→21:16)
[2018-06-12] MEDS: FAMOTIDINE 20 MG INJ IV SCH (09:08)
[2018-06-12] MEDS ORDERED: POTASSIUM CHLORIDE (SR) 20 MEQ TAB PO STA (09:21)
[2018-06-12] MEDS: ENOXAPARIN 40 MG/0.4 ML SYG SC SCH (09:21)
[2018-06-12] MEDS ORDERED: POTASSIUM CHLORIDE 100 ML IVPB SCH (10:30)
[2018-06-12] MEDS: DULOXETINE 30 MG CAP DR PO SCH (12:32)
--- NOTE | 2018-06-12 12:41 | PN ---
Date/Time of Note Date/Time of Note DATE: 06/12/18 TIME: 12:40 Assessment/Plan VTE Prophylaxis Risk score (from Ns)>0 risk: 2 SCD applied (from Ns): Yes SCD contraindicated: other Pharmacological prophylaxis: other Lines/Catheters IV [facility] Type [facility]from [facility] [place]ine Lock Urinary Cath still in place: Yes Reason Cath still needed: other (indicate) Assessment/Plan Assessment/Plan suspected ileus vs psbo however clinically doing better and having bowel movements and patient don't want any surgical intervention at this time. will start clears also will correct hypokalemia Result Diagram: 06/12/188 06/12/188 Results 24hrs Laboratory Tests Test 06/12/18 04:58 White Blood Count 6.8 Red Blood Count 4.20 Hemoglobin 11.6 L Hematocrit 35.0 L Mean Corpuscular Volume 83.3 Mean Corpuscular Hemoglobin 27.6 L Mean Corpuscular Hemoglobin Concent 33.1 Red Cell Distribution Width 17.1 H Platelet Count 416 H Mean Platelet Volume 9.4 Immature Granulocytes % 0.400 Neutrophils % 66.3 Lymphocytes % 17.9 Monocytes % 11.4 H Eosinophils % 3.6 Basophils % 0.4 Nucleated Red Blood Cells % 0.0 Immature Granulocytes # 0.030 Neutrophils # 4.5 Lymphocytes # 1.2 Monocytes # 0.8 Eosinophils # 0.2 Basophils # 0.0 Nucleated Red Blood Cells # 0.0 Sodium Level 140 Potassium Level 2.7 *L Chloride Level 104 Carbon Dioxide Level 24 Anion Gap 12 Blood Urea Nitrogen 11 Creatinine 0.75 Est Glomerular Filtrat Rate mL/min > 60 Glucose Level 102 Hemoglobin A1c 5.3 Calcium Level 8.8 Phosphorus Level 4.9 Magnesium Level 2.2 Total Bilirubin 0.2 Direct Bilirubin 0.00 Indirect Bilirubin 0.2 Aspartate Amino Transf (AST/SGOT) 24 Alanine Aminotransferase (ALT/SGPT) 20 Alkaline Phosphatase 80 Total Protein 6.7 Albumin 3.6 Globulin 3.10 Albumin/Globulin Ratio 1.16 Triglycerides Level 117 Cholesterol Level 192 LDL Cholesterol, Calculated 124 HDL Cholesterol 45 Cholesterol/HDL Ratio 4.2 Subjective 24 Hr Interval Summary Free Text/Dictation SBFT shows partial but patient is having bowel movements and is comfortable also hypokalemia Exam/Review of Systems Exam Vitals Vital Signs Date Temp Pulse Resp B/P (MAP) Pulse Ox O2 O2 Flow FiO2 Time Delivery Rate 3/5/19 98.1 80 18 132/74 98 Room Air 12:18 (93) Intake and Output 06/11/18 06/11/18 06/12/18 1515:00 23:00 07:00 IntakeIntake Total 200 ml 720 ml 680 ml OutputOutput Total 200 ml BalanceBalance 200 ml 520 ml 680 ml Exam abd soft nontender Results Results 24hrs Laboratory Tests Test 06/12/18 04:58 White Blood Count 6.8 Red Blood Count 4.20 Hemoglobin 11.6 L Hematocrit 35.0 L Mean Corpuscular Volume 83.3 Mean Corpuscular Hemoglobin 27.6 L Mean Corpuscular Hemoglobin Concent 33.1 Red Cell Distribution Width 17.1 H Platelet Count 416 H Mean Platelet Volume 9.4 Immature Granulocytes % 0.400 Neutrophils % 66.3 Lymphocytes % 17.9 Monocytes % 11.4 H Eosinophils % 3.6 Basophils % 0.4 Nucleated Red Blood Cells % 0.0 Immature Granulocytes # 0.030 Neutrophils # 4.5 Lymphocytes # 1.2 Monocytes # 0.8 Eosinophils # 0.2 Basophils # 0.0 Nucleated Red Blood Cells # 0.0 Sodium Level 140 Potassium Level 2.7 *L Chloride Level 104 Carbon Dioxide Level 24 Anion Gap 12 Blood Urea Nitrogen 11 Creatinine 0.75 Est Glomerular Filtrat Rate mL/min > 60 Glucose Level 102 Hemoglobin A1c 5.3 Calcium Level 8.8 Phosphorus Level 4.9 Magnesium Level 2.2 Total Bilirubin 0.2 Direct Bilirubin 0.00 Indirect Bilirubin 0.2 Aspartate Amino Transf (AST/SGOT) 24 Alanine Aminotransferase (ALT/SGPT) 20 Alkaline Phosphatase 80 Total Protein 6.7 Albumin 3.6 Globulin 3.10 Albumin/Globulin Ratio 1.16 Triglycerides Level 117 Cholesterol Level 192 LDL Cholesterol, Calculated 124 HDL Cholesterol 45 Cholesterol/HDL Ratio 4.2 Medications Medication Current Medications Dextrose/Sodium Chloride 1,000 ml @ 80 mls/hr [id number] IV Last administered on 06/12/18at 01:23; Admin Dose 80 MLS/HR; Start 06/07/18 at 22:54 IV Flush (NS 3 ml) 3 ml PER PROTOCOL IV Last administered on 06/07/18at 23:32; Admin Dose 3 ML; Start 06/07/18 at 23:00 Ondansetron HCl (Zofran Inj) 4 mg Q6H PRN IV NAUSEA/VOMITING Last administered on 06/09/18 05:11; Admin Dose 4 MG; Start 06/07/18 at 23:00 Famotidine (Pepcid Iv) 20 mg Q12 IV Last administered on 06/12/18 09:08; Admin Dose 20 MG; Start 06/08/18 at 09:00 Morphine Sulfate (morphine) 3 mg Q4H PRN IV SEVERE PAIN LEVEL 7-10; Start 06/08/18 at 21:30 Phenol (Chloraseptic Throat [place]) 2 spray Q2H PRN MT SORE THROAT Last administered on 06/10/18 23:37; Admin Dose 2 SPRAY; Start 06/09/18 at 14:00 Enoxaparin Sodium (Lovenox) 40 mg DAILY SC Last administered on 06/12/18 09:21; Admin Dose 40 MG; Start 06/10/18 at 09:00 Duloxetine HCl (Cymbalta) 60 mg DAILY PO Last administered on 06/12/18 12:32; Admin Dose 60 MG; Start 06/12/18 at 12:00 Polyethylene Glycol (Miralax) 17 gm BID PO ; Start 06/15/18 at 21:00 Senna/Docusate Sodium (Senokot-S) 2 tab HS PO ; Start 06/15/18 at 21:00 Ketorolac Tromethamine (Toradol) 30 mg Q6 IV Last administered on 06/12/18 12:33; Admin Dose 30 MG; Start 06/10/18 at 18:00; Stop 06/13/18 at 17:59 Metoclopramide HCl (Reglan) 10 mg Q8 IV Last administered on 06/12/18 06:05; Admin Dose 10 MG; Start 06/10/18 at 14:00 Hydralazine HCl (Apresoline) 10 mg Q6H PRN IV SBP>160; Start 06/11/18 at 18:00 Potassium Chloride 100 ml @ 50 mls/hr Q2H IVPB Last administered on 06/12/18 11:13; Admin Dose 50 MLS/HR; Start 06/12/18 at 10:30; Stop 06/12/18 at 14:29 Roseanne ZAMBRANO Jun 12, 2018 12:41
--- NOTE | 2018-06-12 14:44 | PN ---
Date/Time of Note Date/Time of Note DATE: 06/12/18 TIME: 14:41 Assessment/Plan VTE Prophylaxis Risk score (from Ns)>0 risk: 2 SCD applied (from Ns): Yes Pharmacological prophylaxis: LMWH Lines/Catheters IV Catheter Type (from [facility]): [place] Urinary Cath still in place: Yes Reason Cath still needed: other (indicate) Assessment/Plan Hospital Course SUBJECTIVE: Had a bowel movement today. OBJECTIVE: Physical Exam General: Adequately build 47 year-old female lying in bed in no apparent distress. HEENT: Normocephalic, atraumatic. Eyes: Anicteric sclerae, conjunctivae clear. ENT: Nasal septum midline, oral mucosa moist. Neck supple, no JVD noticed. Respiratory: Bilaterally clear breath sounds. No use of accessory muscles of respiration. No adventitious breath sounds. Cardiovascular: S1, S2 heard. No murmurs or gallops. Abdomen: Distended. Genitourinary: Deferred. Extremities: No cyanosis, no clubbing, no edema. Peripheral pulses palpable. Neurologic: Cranial nerves II through XII grossly intact. The patient is awake, alert, and oriented. Skin: Normal skin turgor. No skin rashes. Labs & Vitals per chart ASSESSMENT & PLAN 47-year-old female with past medical history of hypertension, obesity, and recent incarcerated incisional hernia repair on 06/01/2018. The patient came to the emergency room with abdominal pain, vomiting, and no bowel movements for 6 days status post surgery. CT scan of the abdomen and pelvis showed infraumbilical hernia containing fat and a small volume of fluid. The patient was admitted to inpatient setting for further treatment and evaluation. 1. Postoperative ileus Vs SBO. -S/P NGT decompression as per surgery. -Started on clear liquids on 06/12/2018. 2. Hypertension. -Continue antihypertensives. 3. Hypokalemia. -Replete. 4. Fluids, electrolytes, and nutrition. -Clear liquids. -Continue IV fluids. 5. DVT prophylaxis. -Subcutaneous Lovenox. 6. Plan. -Replete potassium. -Continue clear liquids. -Continue surgical recommendations. The patient was in collaboration with Dr. Sanders. Result Diagram: 06/12/18 0458 06/12/18 0458 Results 24hrs Laboratory Tests Test 06/12/18 04:58 White Blood Count 6.8 Red Blood Count 4.20 Hemoglobin 11.6 L Hematocrit 35.0 L Mean Corpuscular Volume 83.3 Mean Corpuscular Hemoglobin 27.6 L Mean Corpuscular Hemoglobin Concent 33.1 Red Cell Distribution Width 17.1 H Platelet Count 416 H Mean Platelet Volume 9.4 Immature Granulocytes % 0.400 Neutrophils % 66.3 Lymphocytes % 17.9 Monocytes % 11.4 H Eosinophils % 3.6 Basophils % 0.4 Nucleated Red Blood Cells % 0.0 Immature Granulocytes # 0.030 Neutrophils # 4.5 Lymphocytes # 1.2 Monocytes # 0.8 Eosinophils # 0.2 Basophils # 0.0 Nucleated Red Blood Cells # 0.0 Sodium Level 140 Potassium Level 2.7 *L Chloride Level 104 Carbon Dioxide Level 24 Anion Gap 12 Blood Urea Nitrogen 11 Creatinine 0.75 Est Glomerular Filtrat Rate mL/min > 60 Glucose Level 102 Hemoglobin A1c 5.3 Calcium Level 8.8 Phosphorus Level 4.9 Magnesium Level 2.2 Total Bilirubin 0.2 Direct Bilirubin 0.00 Indirect Bilirubin 0.2 Aspartate Amino Transf (AST/SGOT) 24 Alanine Aminotransferase (ALT/SGPT) 20 Alkaline Phosphatase 80 Total Protein 6.7 Albumin 3.6 Globulin 3.10 Albumin/Globulin Ratio 1.16 Triglycerides Level 117 Cholesterol Level 192 LDL Cholesterol, Calculated 124 HDL Cholesterol 45 Cholesterol/HDL Ratio 4.2 Exam/Review of Systems Exam Vitals Vital Signs Date Temp Pulse Resp B/P (MAP) Pulse Ox O2 O2 Flow FiO2 Time Delivery Rate 06/12/18 98.1 80 18 132/74 98 Room Air 12:18 (93) Intake and Output 06/11/18 06/11/18 06/12/18 1515:00 23:00 07:00 IntakeIntake Total 200 ml 720 ml 680 ml OutputOutput Total 200 ml BalanceBalance 200 ml 520 ml 680 ml Results Results 24hrs Laboratory Tests Test 06/12/18 04:58 White Blood Count 6.8 Red Blood Count 4.20 Hemoglobin 11.6 L Hematocrit 35.0 L Mean Corpuscular Volume 83.3 Mean Corpuscular Hemoglobin 27.6 L Mean Corpuscular Hemoglobin Concent 33.1 Red Cell Distribution Width 17.1 H Platelet Count 416 H Mean Platelet Volume 9.4 Immature Granulocytes % 0.400 Neutrophils % 66.3 Lymphocytes % 17.9 Monocytes % 11.4 H Eosinophils % 3.6 Basophils % 0.4 Nucleated Red Blood Cells % 0.0 Immature Granulocytes # 0.030 Neutrophils # 4.5 Lymphocytes # 1.2 Monocytes # 0.8 Eosinophils # 0.2 Basophils # 0.0 Nucleated Red Blood Cells # 0.0 Sodium Level 140 Potassium Level 2.7 *L Chloride Level 104 Carbon Dioxide Level 24 Anion Gap 12 Blood Urea Nitrogen 11 Creatinine 0.75 Est Glomerular Filtrat Rate mL/min > 60 Glucose Level 102 Hemoglobin A1c 5.3 Calcium Level 8.8 Phosphorus Level 4.9 Magnesium Level 2.2 Total Bilirubin 0.2 Direct Bilirubin 0.00 Indirect Bilirubin 0.2 Aspartate Amino Transf (AST/SGOT) 24 Alanine Aminotransferase (ALT/SGPT) 20 Alkaline Phosphatase 80 Total Protein 6.7 Albumin 3.6 Globulin 3.10 Albumin/Globulin Ratio 1.16 Triglycerides Level 117 Cholesterol Level 192 LDL Cholesterol, Calculated 124 HDL Cholesterol 45 Cholesterol/HDL Ratio 4.2 Medications Medication Current Medications IV Flush (NS 3 ml) 3 ml PER PROTOCOL IV Last administered on 06/07/18 23:32; Admin Dose 3 ML; Start 06/07/18 at 23:00 Ondansetron HCl (Zofran Inj) 4 mg Q6H PRN IV NAUSEA/VOMITING Last administered on 06/09/18 05:11; Admin Dose 4 MG; Start 06/07/18 at 23:00 Famotidine (Pepcid Iv) 20 mg Q12 IV Last administered on 06/12/18 09:08; Admin Dose 20 MG; Start 06/08/18 at 09:00 Morphine Sulfate (morphine) 3 mg Q4H PRN IV SEVERE PAIN LEVEL 7-10; Start 06/08 at 21:30 Phenol (Chloraseptic Throat [place]) 2 spray Q2H PRN MT SORE THROAT Last administered on 06/10/18 23:37; Admin Dose 2 SPRAY; Start 06/09/18 at 14:00 Enoxaparin Sodium (Lovenox) 40 mg DAILY SC Last administered on 06/12/18 09:21; Admin Dose 40 MG; Start 06/10/18 at 09:00 Duloxetine HCl (Cymbalta) 60 mg DAILY PO Last administered on 06/12/18 12:32; Admin Dose 60 MG; Start 06/12/18 at 12:00 Polyethylene Glycol (Miralax) 17 gm BID PO ; Start 06/15/18 at 21:00 Senna/Docusate Sodium (Senokot-S) 2 tab HS PO ; Start 06/15/18 at 21:00 Ketorolac Tromethamine (Toradol) 30 mg Q6 IV Last administered on 06/12/18at 12:33; Admin Dose 30 MG; Start 06/10/18 at 18:00; Stop 06/13/18 at 17:59 Metoclopramide HCl (Reglan) 10 mg Q8 IV Last administered on 06/12/18at 06:05; Admin Dose 10 MG; Start 06/10/18 at 14:00 Hydralazine HCl (Apresoline) 10 mg Q6H PRN IV SBP>160; Start 06/11/18 at 18:00 Potassium Chloride (Klor-Con 20) 20 meq BID PO ; Start 06/12/18 at 21:00 Potassium Chloride 40 meq/ Sodium Chloride 1,000 ml @ 100 mls/hr Q10H IV ; Start 06/12/18 at 14:30 JAIRO HURT NP Jun 12, 2018 14:44
[2018-06-12] MEDS: POTASSIUM CHLORIDE 40 MEQ in SOD CHLORIDE 0.45% 1,000 ML IV SCH (15:03)
[2018-06-12] MEDS: FAMOTIDINE 20 MG TAB PO SCH (20:41)
[2018-06-12] MEDS: POTASSIUM CHLORIDE (SR) 20 MEQ TAB PO SCH (20:41)
[2018-06-13] VITALS (14 sets, daily range): BP systolic 148–164; BP diastolic 64–89; PULSE 72–139; RESP 16–19
[2018-06-13] MEDS: KETOROLAC 30 MG INJ IV SCH ×3 (00:15→12:00)
[2018-06-13] MEDS ORDERED: ZOLPIDEM 5 MG TAB PO PRN (01:00)
[2018-06-13] MEDS: POTASSIUM CHLORIDE 40 MEQ in SOD CHLORIDE 0.45% 1,000 ML IV SCH (01:33)
[2018-06-13] MEDS: METOCLOPRAMIDE 10 MG INJ IV SCH ×3 (06:00→21:46)
[2018-06-13] MEDS: SOD CHLORIDE 0.45% 1,000 ML IV SCH ×4 (06:58→23:24)
[2018-06-13] MEDS: FAMOTIDINE 20 MG TAB PO SCH ×2 (08:22→21:31)
[2018-06-13] MEDS: POTASSIUM CHLORIDE (SR) 20 MEQ TAB PO SCH ×2 (08:22→21:31)
[2018-06-13] MEDS: DULOXETINE 30 MG CAP DR PO SCH (08:22)
[2018-06-13] MEDS: LOSARTAN 50 MG TAB PO SCH (08:23)
[2018-06-13] MEDS: ENOXAPARIN 40 MG/0.4 ML SYG SC SCH (08:24)
--- NOTE | 2018-06-13 15:03 | PN ---
Date/Time of Note Date/Time of Note DATE: 06/13/18 TIME: 15:02 Assessment/Plan VTE Prophylaxis Risk score (from Ns)>0 risk: 2 SCD applied (from [facility]): No SCD contraindicated: other Pharmacological prophylaxis: LMWH Lines/Catheters IV C[facility]ter Type (from [facility]): Peripheral IV Urinary Cath still in place: Yes Reason Cath still needed: other (indicate) Assessment/Plan Hospital Course SUBJECTIVE: Tolerating full liquids. Continues to have diarrhea. OBJECTIVE: Physical Exam General: Adequately build 47 year-old female lying in bed in no apparent distress. HEENT: Normocephalic, atraumatic. Eyes: Anicteric sclerae, conjunctivae clear. ENT: Nasal septum midline, oral mucosa moist. Neck supple, no JVD noticed. Respiratory: Bilaterally clear breath sounds. No use of accessory muscles of respiration. No adventitious breath sounds. Cardiovascular: S1, S2 heard. No murmurs or gallops. Abdomen: Distended. Genitourinary: Deferred. Extremities: No cyanosis, no clubbing, no edema. Peripheral pulses palpable. Neurologic: Cranial nerves II through XII grossly intact. The patient is awake, alert, and oriented. Skin: Normal skin turgor. No skin rashes. Labs & Vitals per chart ASSESSMENT & PLAN 47-year-old female with past medical history of hypertension, obesity, and recent incarcerated incisional hernia repair on 06/01/2018. The patient came to the emergency room with abdominal pain, vomiting, and no bowel movements for 6 days status post surgery. CT scan of the abdomen and pelvis showed infraumbilical hernia containing fat and a small volume of fluid. The patient was admitted to inpatient setting for further treatment and evaluation. 1. Postoperative ileus Vs SBO. -S/P NGT decompression as per surgery. -Started on clear liquids on 06/12/2018. 2. Hypertension. -Continue antihypertensives. 3. Hypokalemia. -Resolved. 4. Fluids, electrolytes, and nutrition. -Full liquids. -Continue IV fluids. 5. DVT prophylaxis. -Subcutaneous Lovenox. 6. Plan. -Advancement of diet as per surgery. -Continue surgical recommendations. -Transfer the patient to medical surgical floor. The patient was in collaboration with Dr. Sanders. Result Diagram: 06/12/18 0458 06/13/18 0559 Results 24hrs Laboratory Tests Test 06/12/18 15:53 06/13/18 05:59 Potassium Level 3.5 4.2 Sodium Level 139 Chloride Level 111 H Carbon Dioxide Level 21 Anion Gap 7 Blood Urea Nitrogen 8 Creatinine 0.71 Est Glomerular Filtrat Rate mL/min > 60 Glucose Level 84 Calcium Level 8.9 Phosphorus Level 3.6 Magnesium Level 2.1 Exam/Review of Systems Exam Vitals Vital Signs Date Temp Pulse Resp B/P (MAP) Pulse Ox O2 O2 Flow FiO2 Time Delivery Rate 06/13/18 98.7 76 19 161/86 98 Room Air 12:24 (111) Intake and Output 06/12/18 06/12/18 06/13/18 1515:00 23:00 07:00 IntakeIntake Total 300 ml 1340 ml OutputOutput Total 150 ml 700 ml BalanceBalance 150 ml 640 ml Results Results 24hrs Laboratory Tests Test 06/12/18 15:53 06/13/18 05:59 Potassium Level 3.5 4.2 Sodium Level 139 Chloride Level 111 H Carbon Dioxide Level 21 Anion Gap 7 Blood Urea Nitrogen 8 Creatinine 0.71 Est Glomerular Filtrat Rate mL/min > 60 Glucose Level 84 Calcium Level 8.9 Phosphorus Level 3.6 Magnesium Level 2.1 Medications Medication Current Medications IV Flush (NS 3 ml) 3 ml PER PROTOCOL IV Last administered on 06/07/18at 23:32; Admin Dose 3 ML; Start 06/07/18 at 23:00 Ondansetron HCl (Zofran Inj) 4 mg Q6H PRN IV NAUSEA/VOMITING Last administered on 06/09/18 05:11; Admin Dose 4 MG; Start 06/07/18 at 23:00 Morphine Sulfate (morphine) 3 mg Q4H PRN IV SEVERE PAIN LEVEL 7-10; Start 06/08/18 at 21:30 Phenol (Chloraseptic Throat [place]) 2 spray Q2H PRN MT SORE THROAT Last administered on 06/10/18 23:37; Admin Dose 2 SPRAY; Start 06/09/18 at 14:00 Enoxaparin Sodium (Lovenox) 40 mg DAILY SC Last administered on 06/13/18 08:24; Admin Dose 40 MG; Start 06/10/18 at 09:00 Duloxetine HCl (Cymbalta) 60 mg DAILY PO Last administered on 06/13/18 08:22; Admin Dose 60 MG; Start 06/12/18 at 12:00 Polyethylene Glycol (Miralax) 17 gm BID PO ; Start 06/15/18 at 21:00 Senna/Docusate Sodium (Senokot-S) 2 tab HS PO ; Start 06/15/18 at 21:00 Ketorolac Tromethamine (Toradol) 30 mg Q6 IV Last administered on 06/13/18 06:07; Admin Dose 30 MG; Start 06/10/18 at 18:00; Stop 06/13/18 at 17:59 Metoclopramide HCl (Reglan) 10 mg Q8 IV Last administered on 06/12/18 21:16; Admin Dose 10 MG; Start 06/10/18 at 14:00 Hydralazine HCl (Apresoline) 10 mg Q6H PRN IV SBP>160; Start 06/11/18 at 18:00 Potassium Chloride (Klor-Con 20) 20 meq BID PO Last administered on 06/13/18 08:22; Admin Dose 20 MEQ; Start 06/12/18 at 21:00 Losartan Potassium (Cozaar) 100 mg DAILY PO Last administered on 06/13/18 08:23; Admin Dose 100 MG; Start 06/13/18 at 09:00 Famotidine (Pepcid) 20 mg Q12 PO Last administered on 06/13/18 08:22; Admin Dose 20 MG; Start 06/12/18 at 21:00 Simethicone (Mylicon) 80 mg Q8H PRN PO DISTENSION/GAS/BLOATING Last administered on 06/12/18 23:22; Admin Dose 80 MG; Start 06/12/18 at 23:00 Sodium Chloride 1,000 ml @ 100 mls/hr Q10H IV Last administered on 06/13/18 06:58; Admin Dose 100 MLS/HR; Start 06/13/18 at 07:00 JAIRO HURT NP Jun 13, 2018 15:03
[2018-06-13] MEDS ORDERED: traZODone 50 MG TAB PO ONE (22:00)
[2018-06-13] MEDS: hydrALAzine 20 MG INJ IV PRN (22:15)
[2018-06-14] MEDS ORDERED: LORAZEPAM 0.5 MG TAB PO ONE (00:30)
[2018-06-14 02:02] VITALS: BP 153/77; PULSE 85; RESP 20
[2018-06-14] MEDS: METOCLOPRAMIDE 10 MG INJ IV SCH ×3 (05:09→21:25)
[2018-06-14 07:30] VITALS: BP 149/78; PULSE 71; RESP 16
[2018-06-14] MEDS: DULOXETINE 30 MG CAP DR PO SCH (09:08)
[2018-06-14] MEDS: POTASSIUM CHLORIDE (SR) 20 MEQ TAB PO SCH ×2 (09:09→21:25)
[2018-06-14] MEDS: LOSARTAN 50 MG TAB PO SCH (09:09)
[2018-06-14] MEDS: FAMOTIDINE 20 MG TAB PO SCH ×2 (09:09→21:25)
[2018-06-14] MEDS: ENOXAPARIN 40 MG/0.4 ML SYG SC SCH (09:10)
--- NOTE | 2018-06-14 10:20 | PN ---
Date/Time of Note Date/Time of Note DATE: 06/14/18 TIME: 10:19 Assessment/Plan VTE Prophylaxis Risk score (from Ns)>0 risk: 2 [place]CD applied [place] [facility] No SCD contraindicated: other Pharmacological prophylaxis: other Lines/Catheters [facility] Type [facility]from [facility]): Peripheral IV Urinary Cath still in place: Yes Reason Cath still needed: other (indicate) Assessment/Plan Assessment/Plan s/p surgery with paralytic ileus start regular diet ok from surgical standpoint to go home today or tomorrow but patient wants to stay another day Result Diagram: 06/14/1844906/14/18449 Results 24hrs Laboratory Tests Test 06/14/18 04:50 White Blood Count 6.7 Red Blood Count 4.09 L Hemoglobin 11.3 L Hematocrit 34.9 L Mean Corpuscular Volume 85.3 Mean Corpuscular Hemoglobin 27.6 L Mean Corpuscular Hemoglobin Concent 32.4 Red Cell Distribution Width 17.1 H Platelet Count 429 H Mean Platelet Volume 9.4 Immature Granulocytes % 0.900 H Neutrophils % 64.3 Lymphocytes % 18.7 Monocytes % 9.4 Eosinophils % 6.3 Basophils % 0.4 Nucleated Red Blood Cells % 0.0 Immature Granulocytes # 0.060 H Neutrophils # 4.3 Lymphocytes # 1.3 Monocytes # 0.6 Eosinophils # 0.4 Basophils # 0.0 Nucleated Red Blood Cells # 0.0 Sodium Level 140 Potassium Level 4.0 Chloride Level 111 H Carbon Dioxide Level 23 Anion Gap 6 Blood Urea Nitrogen 4 L Creatinine 0.66 Est Glomerular Filtrat Rate mL/min > 60 Glucose Level 83 Calcium Level 8.9 Phosphorus Level 4.4 Magnesium Level 2.0 Subjective 24 Hr Interval Summary Free Text/Dictation patient doing well and having bowel movements and tolerating diet Exam/Review of Systems Exam Vitals Vital Signs Date Temp Pulse Resp B/P (MAP) Pulse Ox O2 O2 Flow FiO2 Time Delivery Rate 06/14/18 98.0 71 16 149/78 97 Room Air 07:30 (101) Intake and Output 06/13/18 06/13/18 06/14/18 1515:00 23:00 07:00 IntakeIntake Total 900 ml 180 ml OutputOutput Total 350 ml BalanceBalance 550 ml 180 ml Exam soft c/d/i Results Results 24hrs Laboratory Tests Test 06/14/18 04:50 White Blood Count 6.7 Red Blood Count 4.09 L Hemoglobin 11.3 L Hematocrit 34.9 L Mean Corpuscular Volume 85.3 Mean Corpuscular Hemoglobin 27.6 L Mean Corpuscular Hemoglobin Concent 32.4 Red Cell Distribution Width 17.1 H Platelet Count 429 H Mean Platelet Volume 9.4 Immature Granulocytes % 0.900 H Neutrophils % 64.3 Lymphocytes % 18.7 Monocytes % 9.4 Eosinophils % 6.3 Basophils % 0.4 Nucleated Red Blood Cells % 0.0 Immature Granulocytes # 0.060 H Neutrophils # 4.3 Lymphocytes # 1.3 Monocytes # 0.6 Eosinophils # 0.4 Basophils # 0.0 Nucleated Red Blood Cells # 0.0 Sodium Level 140 Potassium Level 4.0 Chloride Level 111 H Carbon Dioxide Level 23 Anion Gap 6 Blood Urea Nitrogen 4 L Creatinine 0.66 Est Glomerular Filtrat Rate mL/min > 60 Glucose Level 83 Calcium Level 8.9 Phosphorus Level 4.4 Magnesium Level 2.0 Medications Medication Current Medications IV Flush (NS 3 ml) 3 ml PER PROTOCOL IV Last administered on 06/07/18at 23:32; Admin Dose 3 ML; Start 06/07/18 at 23:00 Ondansetron HCl (Zofran Inj) 4 mg Q6H PRN IV NAUSEA/VOMITING Last administered on 06/09/18 05:11; Admin Dose 4 MG; Start 06/07/18 at 23:00 Morphine Sulfate (morphine) 3 mg Q4H PRN IV SEVERE PAIN LEVEL 7-10; Start 06/08/18 at 21:30 Phenol (Chloraseptic Throat [place]) 2 spray Q2H PRN MT SORE THROAT Last administered on 06/10/18at 23:37; Admin Dose 2 SPRAY; Start 06/09/18 at 14:00 Enoxaparin Sodium (Lovenox) 40 mg DAILY SC Last administered on 06/14/18 09:10; Admin Dose 40 MG; Start 06/10/18 at 09:00 Duloxetine HCl (Cymbalta) 60 mg DAILY PO Last administered on 06/14/18 09:08; Admin Dose 60 MG; Start 06/12/18 at 12:00 Polyethylene Glycol (Miralax) 17 gm BID PO ; Start 06/15/18 at 21:00 Senna/Docusate Sodium (Senokot-S) 2 tab HS PO ; Start 06/15/18 at 21:00 Metoclopramide HCl (Reglan) 10 mg Q8 IV Last administered on 06/12/18 21:16; Admin Dose 10 MG; Start 06/10/18 at 14:00 Hydralazine HCl (Apresoline) 10 mg Q6H PRN IV SBP>160 Last administered on 06/13/18 22:15; Admin Dose 10 MG; Start 06/11/18 at 18:00 Potassium Chloride (Klor-Con 20) 20 meq BID PO Last administered on 06/14/18 09:09; Admin Dose 20 MEQ; Start 06/12/18 at 21:00 Losartan Potassium (Cozaar) 100 mg DAILY PO Last administered on 06/14/18 09:09; Admin Dose 100 MG; Start 06/13/18 at 09:00 Famotidine (Pepcid) 20 mg Q12 PO Last administered on 06/14/18 09:09; Admin Dose 20 MG; Start 06/12/18 at 21:00 Simethicone (Mylicon) 80 mg Q8H PRN PO DISTENSION/GAS/BLOATING Last administered on 06/13/18 15:31; Admin Dose 80 MG; Start 06/12/18 at 23:00 Sodium Chloride 1,000 ml @ 30 mls/hr Q24H IV Last administered on 06/13/18 23:24; Admin Dose 30 MLS/HR; Start 06/13/18 at 23:00 Roseanne ZAMBRANO Jun 14, 2018 10:20
[2018-06-14] MEDS ORDERED: LORAZEPAM 2 MG INJ IV PRN (11:00)
--- NOTE | 2018-06-14 11:02 | PN ---
Date/Time of Note Date/Time of Note DATE: 06/14/18 TIME: 10:57 Assessment/Plan VTE Prophylaxis Risk score (from Ns)>0 risk: 2 SCD applied (from Ns): No SCD contraindicated: other Pharmacological prophylaxis: LMWH Lines/Catheters [facility] Type (from [facility]): Peripheral IV Urinary Cath still in place: Yes Reason Cath still needed: other (indicate) (To be discontinued.) Assessment/Plan Hospital Course SUBJECTIVE: Tolerating full liquids. Diet verbalized that she is was advanced to regular diet by general surgery. Anxious and depressed about her current situation (complication from surgery). Also complains of insomnia. OBJECTIVE: Physical Exam General: Adequately build 47 year-old female lying in bed in no apparent distress. HEENT: Normocephalic, atraumatic. Eyes: Anicteric sclerae, conjunctivae clear. ENT: Nasal septum midline, oral mucosa moist. Neck supple, no JVD noticed. Respiratory: Bilaterally clear breath sounds. No use of accessory muscles of respiration. No adventitious breath sounds. Cardiovascular: S1, S2 heard. No murmurs or gallops. Abdomen: Distended. Genitourinary: Deferred. Extremities: No cyanosis, no clubbing, no edema. Peripheral pulses palpable. Neurologic: Cranial nerves II through XII grossly intact. The patient is awake, alert, and oriented. Skin: Normal skin turgor. No skin rashes. Mood: Anxious. Labs & Vitals per chart ASSESSMENT & PLAN 47-year-old female with past medical history of hypertension, obesity, and recent incarcerated incisional hernia repair on 06/01/2018. The patient came to the emergency room with abdominal pain, vomiting, and no bowel movements for 6 days status post surgery. CT scan of the abdomen and pelvis showed infraumbilical hernia containing fat and a small volume of fluid. The patient was admitted to inpatient setting for further treatment and evaluation. 1. Postoperative ileus -S/P NGT decompression as per surgery. -Started on clear liquids on 06/12/2018. -Started on a regular diet on 06/14/2089. 2. Hypertension. -Continue antihypertensives. 3. Hypokalemia. -Resolved. 4. Anxiety. -Continue PRN anxiolytics. 5. Fluids, electrolytes, and nutrition. -Regular diet. 6. DVT prophylaxis. -Subcutaneous Lovenox. 6. Plan. -Await clinical improvement. -Discharge patient home once cleared by general surgery. -Continue surgical recommendations. Called the patient's son Kilo at [phone] and updated the patient's status. The patient was in collaboration with Dr. Sanders. Result Diagram: 06/14/180 06/14/180 Results 24hrs Laboratory Tests Test 06/14/18 04:50 White Blood Count 6.7 Red Blood Count 4.09 L Hemoglobin 11.3 L Hematocrit 34.9 L Mean Corpuscular Volume 85.3 Mean Corpuscular Hemoglobin 27.6 L Mean Corpuscular Hemoglobin Concent 32.4 Red Cell Distribution Width 17.1 H Platelet Count 429 H Mean Platelet Volume 9.4 Immature Granulocytes % 0.900 H Neutrophils % 64.3 Lymphocytes % 18.7 Monocytes % 9.4 Eosinophils % 6.3 Basophils % 0.4 Nucleated Red Blood Cells % 0.0 Immature Granulocytes # 0.060 H Neutrophils # 4.3 Lymphocytes # 1.3 Monocytes # 0.6 Eosinophils # 0.4 Basophils # 0.0 Nucleated Red Blood Cells # 0.0 Sodium Level 140 Potassium Level 4.0 Chloride Level 111 H Carbon Dioxide Level 23 Anion Gap 6 Blood Urea Nitrogen 4 L Creatinine 0.66 Est Glomerular Filtrat Rate mL/min > 60 Glucose Level 83 Calcium Level 8.9 Phosphorus Level 4.4 Magnesium Level 2.0 Exam/Review of Systems Exam Vitals Vital Signs Date Temp Pulse Resp B/P (MAP) Pulse Ox O2 O2 Flow FiO2 Time Delivery Rate 06/14/18 98.0 71 16 149/78 97 Room Air 07:30 (101) Intake and Output 06/13/18 06/13/18 06/14/18 1515:00 23:00 07:00 IntakeIntake Total 900 ml 180 ml OutputOutput Total 350 ml BalanceBalance 550 ml 180 ml Results Results 24hrs Laboratory Tests Test 06/14/18 04:50 White Blood Count 6.7 Red Blood Count 4.09 L Hemoglobin 11.3 L Hematocrit 34.9 L Mean Corpuscular Volume 85.3 Mean Corpuscular Hemoglobin 27.6 L Mean Corpuscular Hemoglobin Concent 32.4 Red Cell Distribution Width 17.1 H Platelet Count 429 H Mean Platelet Volume 9.4 Immature Granulocytes % 0.900 H Neutrophils % 64.3 Lymphocytes % 18.7 Monocytes % 9.4 Eosinophils % 6.3 Basophils % 0.4 Nucleated Red Blood Cells % 0.0 Immature Granulocytes # 0.060 H Neutrophils # 4.3 Lymphocytes # 1.3 Monocytes # 0.6 Eosinophils # 0.4 Basophils # 0.0 Nucleated Red Blood Cells # 0.0 Sodium Level 140 Potassium Level 4.0 Chloride Level 111 H Carbon Dioxide Level 23 Anion Gap 6 Blood Urea Nitrogen 4 L Creatinine 0.66 Est Glomerular Filtrat Rate mL/min > 60 Glucose Level 83 Calcium Level 8.9 Phosphorus Level 4.4 Magnesium Level 2.0 Medications Medication Current Medications IV Flush (NS 3 ml) 3 ml PER PROTOCOL IV Last administered on 06/07/18 23:32; Admin Dose 3 ML; Start 06/07/18 at 23:00 Ondansetron HCl (Zofran Inj) 4 mg Q6H PRN IV NAUSEA/VOMITING Last administered on 06/09/18 05:11; Admin Dose 4 MG; Start 06/07/18 at 23:00 Morphine Sulfate (morphine) 3 mg Q4H PRN IV SEVERE PAIN LEVEL 7-10; Start 06/08/18 at 21:30 Phenol (Chloraseptic Throat [place]) 2 spray Q2H PRN MT SORE THROAT Last administered on 06/10/18 23:37; Admin Dose 2 SPRAY; Start 06/09/18 at 14:00 Enoxaparin Sodium (Lovenox) 40 mg DAILY SC Last administered on 06/14/18 09:10; Admin Dose 40 MG; Start 06/10/18 at 09:00 Duloxetine HCl (Cymbalta) 60 mg DAILY PO Last administered on 06/14/18 09:08; Admin Dose 60 MG; Start 06/12/18 at 12:00 Polyethylene Glycol (Miralax) 17 gm BID PO ; Start 06/15/18 at 21:00 Senna/Docusate Sodium (Senokot-S) 2 tab HS PO ; Start 06/15/18 at 21:00 Metoclopramide HCl (Reglan) 10 mg Q8 IV Last administered on 06/12/18 21:16; Admin Dose 10 MG; Start 06/10/18 at 14:00 Hydralazine HCl (Apresoline) 10 mg Q6H PRN IV SBP>160 Last administered on 06/13/18 22:15; Admin Dose 10 MG; Start 06/11/18 at 18:00 Potassium Chloride (Klor-Con 20) 20 meq BID PO Last administered on 06/14/18 09:09; Admin Dose 20 MEQ; Start 06/12/18 at 21:00 Losartan Potassium (Cozaar) 100 mg DAILY PO Last administered on 06/14/18 09:09; Admin Dose 100 MG; Start 06/13/18 at 09:00 Famotidine (Pepcid) 20 mg Q12 PO Last administered on 06/14/18 09:09; Admin Dose 20 MG; Start 06/12/18 at 21:00 Simethicone (Mylicon) 80 mg Q8H PRN PO DISTENSION/GAS/BLOATING Last administered on 06/13/18 15:31; Admin Dose 80 MG; Start 06/12/18 at 23:00 Sodium Chloride 1,000 ml @ 30 mls/hr Q24H IV Last administered on 06/13/18 23:24; Admin Dose 30 MLS/HR; Start 06/13/18 at 23:00 JAIRO HURT NP Jun 14, 2018 11:02
[2018-06-14 14:25] VITALS: BP 174/87; PULSE 84; RESP 18
[2018-06-14 15:35] VITALS: BP 162/89; RESP 18
[2018-06-14 20:00] VITALS: BP 163/78; PULSE 82; RESP 18
[2018-06-14] MEDS: hydrALAzine 20 MG INJ IV PRN (21:25)
[2018-06-14 22:37] VITALS: BP 143/74; PULSE 80
[2018-06-14] MEDS: SOD CHLORIDE 0.45% 1,000 ML IV SCH (23:00)
[2018-06-15 02:00] VITALS: BP 165/77; PULSE 86; RESP 18
[2018-06-15] MEDS: METOCLOPRAMIDE 10 MG INJ IV SCH ×2 (05:30→14:00)
[2018-06-15] MEDS: SOD CHLORIDE 0.45% 1,000 ML IV SCH (05:34)
[2018-06-15 07:35] VITALS: BP 169/85; PULSE 65; RESP 16
[2018-06-15] MEDS: POTASSIUM CHLORIDE (SR) 20 MEQ TAB PO SCH (09:21)
[2018-06-15] MEDS: DULOXETINE 30 MG CAP DR PO SCH (09:21)
[2018-06-15] MEDS: FAMOTIDINE 20 MG TAB PO SCH (09:21)
[2018-06-15] MEDS: LOSARTAN 50 MG TAB PO SCH (09:22)
[2018-06-15] MEDS: ENOXAPARIN 40 MG/0.4 ML SYG SC SCH (09:23)
[2018-06-15] MEDS ORDERED: Work Note ×2 (13:27→13:36)
[2018-06-15 14:32] VITALS: BP 158/96; PULSE 86; RESP 18
--- NOTE | 2018-06-15 16:08 | DS ---
Date/Time of Note Date/Time of Note DATE: 06/15/18 TIME: 16:03 Discharge Summary Admission/Discharge Info Admit Date/Time Jun 07, 2018 at 20:18 Discharge Date/Time Discharge Diagnosis 1. Postoperative ileus 2. Hypertension. 3. Obesity. Patient Condition: Stable Consults 1. Shahram Vincent MD, General Surgery. Procedures CT Abdomen & Pelvis IMPRESSION: No evidence of urolithiasis, obstructive uropathy, diverticulitis or appendicitis. Infraumbilical hernia containing fat and a small volume of fluid. Hx of Present Illness This is a 47-year-old female with past medical history of hypertension, obesity, and recent incarcerated incisional hernia repair on 06/01/2018. The patient came to the emergency room with abdominal pain, vomiting, and no bowel movements for 6 days status post surgery. CT scan of the abdomen and pelvis showed infraumbilical hernia containing fat and a small volume of fluid. The patient was admitted to inpatient setting for further treatment and evaluation. Hospital Course The patient was admitted to inpatient medical surgical floor. She was started on NGT decompression. The patient's surgeon was informed about the patient's admission. Patient remained on NGT decompression until 06-11. The patient was started on a clear liquid diet on 06/12/2018 and the diet was advanced to full liquid on 06/13/2018. The patient was a advanced to regular diet on 06/14/2018. The patient's postoperative ileus responded to well to conservative therapy. However, the patient's responded slowly. The patient's chronic problems include hypertension. The patient was maintained on antihypertensives for the same. The patient also had hypokalemia during the hospitalization because of no oral intake and NGT decompression. The patient refused IV potassium supplements. At one point of time, the patient has hypokalemia most significant in that so that the patient needs to be transferred to telemetry floor for telemetry monitoring for any arrhythmias. The patient/the patient's family was instructed on the consequences of not taking potassium supplements including the possibility of cardiac arrhythmias and cardiac arrest. Nevertheless, the patient/patient's son refused any IV potassium supplements. Once the patient started having oral intake, the patient's potassium level normalized. The patient also expressed anxiety and symptoms of depression during the hospital course. Therefore, the patient was maintained on anxiolytics. The patient was also maintained on antidepressants. However, the patient does not need any long-term antidepressants since the patient has no evidence of any clinical depression. The patient had a stable hospital course. The patient was cleared by general surgery to be discharged home. The patient denied any complaints at the time of discharge. All the patient's surgical wendy were removed before the patient was discharged. Discharge Instructions 1. Take a regular, preferably high-fiber diet as tolerated. 2. Take daily stool softeners. 3. Take [id number] pain medications as needed. Avoid opioids. 4. Follow-up with the surgeon's office next week. 5. Resume activities as tolerated. No heavy lifting for 2 months. The patient verbalized understanding of the discharge instructions. At this time I would like to thank all the consultants for seeing the patient and providing clinical recommendations. The patient was seen in collaboration with Dr. Sanders. Home Meds Active Scripts [Work Note] No Conflict Check This is to certify that the patient was admitted to [facility] from 06/07/2018 to 06/15/2018. The patient can return back to work on 08/25/2018 with no restrictions. Prov:JAIRO HURT NP 06/15/18 Sennosides/Docusate Sodium (Dok Plus Tablet) 1 Each Tablet, 2 TAB PO HS for 10 Days, #20 TAB Prov:AYAH MILLIGAN MD 06/08/18 Polyethylene Glycol* (Miralax*) 17 Gm Powd.pack, 17 GM PO TID for constipation, #10 Prov:LAKIA HI MD 06/04/18 Na Phos,M-B/Na Phos,Di-Ba (Fleet Enema Extra) 230 Ml Enema, 230 ML RC ONCE, #1 ENEMA Prov:LAKIA HI MD 06/04/18 Bisacodyl* (Dulcolax*) 5 Mg Tablet.dr, 10 MG PO DAILY PRN for CONSTIPATION, #3 TAB Prov:LAKIA HI MD 06/04/18 Reported Medications Losartan Potassium* (Losartan Potassium*) 100 Mg Tablet, 100 MG PO DAILY, TAB 06/01/18 Discontinued Reported Medications Hydrocodone/Acetaminophen (Warren 10-325 Tablet) 1 Each Tablet, 1 EACH PO Q4 PRN for SEVERE PAIN LEVEL 7-10, TAB 06/07/18 Discontinued Scripts Tramadol HCl (Tramadol HCl) 50 Mg Tablet, 50 MG PO Q6H PRN for PAIN, #15 TAB Prov:LAKIA HI MD 06/04/18 Follow-up Plan Dr Vincent 1wk PCP 1wk Primary Care Provider [facility] Time spent on discharge: > 30 minutes Pending Labs Laboratory Tests Test 06/15/18 04:36 Sodium Level 141 mmol/L (135-144) Potassium Level 4.0 mmol/L (3.5-5.1) Chloride Level 104 mmol/L (97-110) Carbon Dioxide Level 26 mmol/L (21-31) Anion Gap 11 (5-13) Blood Urea Nitrogen 10 mg/dl (7-20) Creatinine 0.76 mg/dl (0.44-1.00) Est Glomerular Filtrat Rate mL/min > 60 mL/min (>60) Glucose Level 96 mg/dl (70-220) Calcium Level 9.2 mg/dl (8.4-10.2) Phosphorus Level 5.2 mg/dl (2.5-4.9) Magnesium Level 1.9 mg/dl (1.7-2.5) JAIRO HURT NP Jun 15, 2018 16:08
--- NOTE | 2018-06-15 17:30 | PN ---
DATE: 06/15/2018 I have seen the patient per Dr. Vincent today. SUBJECTIVE: Does not have any complaint. No abdominal pain, no nausea, no vomiting. Has tolerated diet. Had a regular breakfast. Has had bowel movement. OBJECTIVE: GENERAL: Awake, alert, oriented. VITAL SIGNS: Temperature today 98.6, heart rate 86, respiration 18, blood pressure 165/77, saturatio n 97% on room air. HEART: Regular. LUNGS: Clear. ABDOMEN: Not distended, soft. Bowel sounds are present, normal, maybe slightly hyperactive bowel so unds. EXTREMITIES: Legs are negative. No tenderness. No pitting edema. LABORATORY DATA: Magnesium is 1.9 today. Phosphorus is slightly elevated. Sodium, potassium, BUN, creatinine within normal limits. Glucose is 96. ASSESSMENT: This is a 47-year-old female who has had incisional ventral hernia repair 1 week ago lap aroscopically with placement of the mesh. She presented with nausea, vomiting, constipation and sign s of probable bowel obstruction, was admitted and was evaluated. NG tube was placed. Eventually, up per GI small bowel follow-through with Gastrografin was done which showed evidence of proximal small bowel dilatation, possible partial obstruction, but not complete obstruction. Following that, the pa tient had several bowel movements and gradually, the diet was advanced. The patient has tolerated re gular diet today and clinically, abdomen is benign and the wounds are healed actually. I advised the RN to remove the wendy. From surgical point of view, the patient can be discharged home if it is okay with medical consultants and then to follow up. The patient should call and make appointment to visit Dr. Vincent in the office next week. Dictated By: JORGE HURLEY MD PS/NTS Conf#: [id number] DID#: [id number] CC: FRANSICO PEREIRA MD; AYAH MILLIGAN MD;*EndCC*
[2018-06-15] MEDS ORDERED: POLYETHYLENE GLYCOL 17 GM PACKET PO SCH (21:00)
[2018-06-15] MEDS ORDERED: SENNA/DOCUSATE NA (8.6MG/50MG) TAB PO SCH (21:00)
== END 2018-06-15 16:30 | disposition home or self-care (01) | DRG 390 ==
LOC: E/R 18:23 → 2NE 20:18 → TEL 06-12 09:49 → 6WM 06-12 12:05 → PP2 06-13 18:42
PROVIDERS: ADMIT Internal Medicine; ATTEND Internal Medicine
DX: K56.7 Ileus, unspecified (principal); I10 Essential (primary) hypertension; Z98.890 Other specified postprocedural states; E88.81 Metabolic syndrome and other insulin resistance; N39.3 Stress incontinence (female) (male); F32.9 Major depressive disorder, single episode, unspecified; E87.6 Hypokalemia; E66.9 Obesity, unspecified; Z68.34 Body mass index [BMI] 34.0-34.9, adult
CPT/HCPCS: 36415; 71045; 74018; 74176; 74250; 80048; 80053; 80061; 83036; 83605; 83690; 83735; 84100; 84132; 84703; 85025; 85610; 85730; 96361; 96374; J0131; J0360; J1650; J1885; J2060; J2270; J2405; J2765; J3480; J7030; J7042